=== PATIENT | female | born 1935 | race Caucasian/White ===

== ENCOUNTER 2017-10-02 14:35 | Inpatient (IN) ==
[2017-10-02 17:31] LABS: Basophils # 0.1 10*3/uL (0.0-0.2); Basophils % 0.4 % (0.0-0.8); Eosinophils % 0.1 % (0.00-10.9); Hematocrit 33.8 VOL% (35.7-47.0); Hemoglobin 11.1 GM/DL (12.0-16.0); Immature Granulocytes % 0.9 %; Immature Granulocytes Absolute 0.11 #; Lymphocytes # 0.6 10*3/uL (1.4-4.0); Lymphocytes % 4.8 % (21.3-54.2); Mean Corpuscular HGB Conc 32.8 GM/DL (32-36); Mean Corpuscular Hemoglobin 34 PG (27-34); Mean Corpuscular Volume 102.1 FL (87-102); Mean Platelet Volume 11.3 FL (9.6-12.0); Monocytes # 1.5 10*3/uL (0.11-0.8); Monocytes % 11.5 % (1.7-12.7); Neutrophils # 10.4 10*3/uL (1.4-7.4); Neutrophils % 82.3 % (38.7-73.9); Platelet Count 219 T/CUMM (130-400); Red Blood Count 3.31 MC/CUMM (3.8-5.5); Red Cell Distribution Width 13.4 % (9.3-17.3); White Blood Count 12.7 T/CUMM (4-12)
[2017-10-02 17:32] LABS: Apearance,Urine Slightly Hazy (Clear); Bacteria,Urine Occasional /HPF (Few); Bilirubin,Urine Negative (Negative); Blood, Urine Negative (Negative); Glucose,Urine (UA) Negative (Negative); Hyaline Casts,Urine 4 /LPF (0-3); Ketones,Urine Negative (Negative); Mucus,Urine Occasional /LPF (Occasional); Nitrite,Urine Negative (Negative); Protein,Urine Negative; RBC,Urine 1 /HPF (0-4); Urine Color Yellow (Yellow); Urine Specific Gravity 1.012 (1.001-1.035); Urine Urobilinogen < 2.0 EU/DL (0.2-1.0); WBC,Urine <1 /HPF (0-6)
[2017-10-02 18:19] LABS: Albumin 3.8 G/DL (3.4-5.0); Bilirubin,Total 1.1 MG/DL (0.2-1.0); Calcium 9.3 MG/DL (8.5-10.1); Osmolality,Calculated 290.1 MOS/KG (273-304); Potassium 3.8 MMOL/L (3.5-5.1)
[2017-10-02] MEDS ORDERED: SODIUM CHLORIDE 0.9% 500 ML IV STA (18:20)
[2017-10-02 18:22] LABS: Band Neutrophils 1 % (0-10); Lymphocytes 5 % (20-55); Platelet Estimate Normal; Segmented Neutrophils 78 % (50-85); Total Cells Counted 100
[2017-10-02] MEDS ORDERED: cefTRIAXone 1,000 MG in SODIUM CHLORIDE 0.9% 100 ML IV STA (19:27)
[2017-10-02 19:34] LABS: INR 4.9
[2017-10-02 19:35] LABS: PT Patient Result 48.6 SECS; Partial Thromboplastin Time 48.1 SECS (0-40)
[2017-10-02 19:39] LABS: CKMB % 0.6 %; Troponin I Only < 0.015 NG/ML (0.00-0.045)
[2017-10-02] MEDS ORDERED: cefTRIAXone 1,000 MG VIAL ONE (20:07)
[2017-10-02] MEDS ORDERED: BUMETANIDE 1 MG/4 ML VIAL IV ONE (21:25)
[2017-10-02] MEDS ORDERED: AZITHROMYCIN INJ 500 MG in SODIUM CHLORIDE 0.9% 250 ML IV SCH (21:30)
[2017-10-02] MEDS ORDERED: DIGOXIN 0.5 MG/2 ML AMP IV ONE (21:34)
[2017-10-02] MEDS ORDERED: CARVEDILOL 3.125 MG TABLET ONE (22:04)
[2017-10-02] MEDS: CARVEDILOL 3.125 MG TABLET PO SCH (22:05)
[2017-10-03] MEDS: PIPERACILLIN/TAZOBACTAM 3,375 MG in SODIUM CHLORIDE 0.9% 100 ML IV SCH ×3 (01:08→17:37)
[2017-10-03] MEDS ORDERED: LEVALBUTEROL 0.63 MG/3 ML NEB RESP TX PRN (01:44)
[2017-10-03] MEDS: GENTAMICIN 0.3% OPH SOLN 5 ML BOTTLE BOTH EYES SCH ×6 (03:04→22:27)
[2017-10-03 05:54] LABS: Basophils % 0.3 % (0.0-0.8); Eosinophils % 0.1 % (0.00-10.9); Hematocrit 31.3 VOL% (35.7-47.0); Hemoglobin 10.2 GM/DL (12.0-16.0); Immature Granulocytes % 0.7 %; Immature Granulocytes Absolute 0.08 #; Lymphocytes # 0.8 10*3/uL (1.4-4.0); Lymphocytes % 6.8 % (21.3-54.2); Mean Corpuscular HGB Conc 32.6 GM/DL (32-36); Mean Corpuscular Hemoglobin 33 PG (27-34); Mean Corpuscular Volume 102.3 FL (87-102); Mean Platelet Volume 11.6 FL (9.6-12.0); Monocytes # 1.3 10*3/uL (0.11-0.8); Monocytes % 11.2 % (1.7-12.7); Neutrophils # 9.1 10*3/uL (1.4-7.4); Neutrophils % 80.9 % (38.7-73.9); Platelet Count 199 T/CUMM (130-400); Red Blood Count 3.06 MC/CUMM (3.8-5.5); Red Cell Distribution Width 13.5 % (9.3-17.3); White Blood Count 11.3 T/CUMM (4-12)
[2017-10-03] MEDS: LEVOTHYROXINE 100 MCG TABLET PO SCH (06:05)
[2017-10-03 06:20] LABS: INR 6.7
[2017-10-03 06:30] LABS: Calcium 8.1 MG/DL (8.5-10.1); Osmolality,Calculated 291.8 MOS/KG (273-304); Potassium 3.6 MMOL/L (3.5-5.1)
[2017-10-03 07:33] LABS: Band Neutrophils 2 % (0-10); Lymphocytes 6 % (20-55); Platelet Estimate Adequate; Segmented Neutrophils 79 % (50-85); Total Cells Counted 100
[2017-10-03 07:34] LABS: Giant Platelets Few; Hypochromasia 1+; Ovalocytes Slight
[2017-10-03] MEDS ORDERED: levETIRAcetam 250 MG TABLET PO SCH (09:00)
[2017-10-03] MEDS: MAGNESIUM CHLORIDE 64 MG TABLET PO SCH ×2 (09:00→20:47)
[2017-10-03] MEDS ORDERED: ASPIRIN CHEW 81 MG TABLET PO SCH (09:00)
[2017-10-03] MEDS ORDERED: BUMETANIDE 1 MG/4 ML VIAL IV SCH (09:00)
[2017-10-03] MEDS: FAMOTIDINE 20 MG TABLET PO SCH (09:03)
[2017-10-03] MEDS: FERROUS SULFATE 325 MG TABLET PO SCH (09:03)
[2017-10-03] MEDS: CARVEDILOL 3.125 MG TABLET PO SCH ×2 (09:03→20:47)
[2017-10-03] MEDS: DIGOXIN 0.125 MG TABLET PO SCH (14:08)
[2017-10-03] MEDS ORDERED: SKIN HEALING OINT (AQUAPHOR) 50 GM TUBE TOP PRN (15:19)
[2017-10-03] MEDS ORDERED: WARFARIN 5 MG TABLET PO SCH (18:00)
[2017-10-03] MEDS: levETIRAcetam 250 MG TABLET PO SCH (20:47)
[2017-10-04] MEDS: PIPERACILLIN/TAZOBACTAM 3,375 MG in SODIUM CHLORIDE 0.9% 100 ML IV SCH ×3 (02:16→18:17)
[2017-10-04] MEDS: GENTAMICIN 0.3% OPH SOLN 5 ML BOTTLE BOTH EYES SCH ×6 (02:17→22:07)
[2017-10-04 05:27] LABS: Basophils # 0.1 10*3/uL (0.0-0.2); Basophils % 0.4 % (0.0-0.8); Eosinophils # 0.1 10*3/uL (0.0-0.87); Eosinophils % 0.7 % (0.00-10.9); Hematocrit 32.5 VOL% (35.7-47.0); Hemoglobin 10.5 GM/DL (12.0-16.0); Immature Granulocytes % 1.1 %; Immature Granulocytes Absolute 0.14 #; Lymphocytes # 0.7 10*3/uL (1.4-4.0); Mean Corpuscular HGB Conc 32.3 GM/DL (32-36); Mean Corpuscular Hemoglobin 33 PG (27-34); Mean Corpuscular Volume 101.9 FL (87-102); Mean Platelet Volume 10.8 FL (9.6-12.0); Monocytes # 1.2 10*3/uL (0.11-0.8); Neutrophils # 10.2 10*3/uL (1.4-7.4); Neutrophils % 81.8 % (38.7-73.9); Platelet Count 205 T/CUMM (130-400); Red Blood Count 3.19 MC/CUMM (3.8-5.5); Red Cell Distribution Width 13.2 % (9.3-17.3); White Blood Count 12.4 T/CUMM (4-12)
[2017-10-04 06:09] LABS: Calcium 8.2 MG/DL (8.5-10.1); Osmolality,Calculated 291.7 MOS/KG (273-304); Potassium 2.8 MMOL/L (3.5-5.1)
[2017-10-04] MEDS ORDERED: POTASSIUM CHLORIDE 20 MEQ TABLET PO PRN (06:14)
[2017-10-04] MEDS: LEVOTHYROXINE 100 MCG TABLET PO SCH (06:19)
[2017-10-04] MEDS ORDERED: POTASSIUM CHLORIDE 20 MEQ TABLET PO ONE ×2 (06:23→08:30)
[2017-10-04 06:37] LABS: Band Neutrophils 15 % (0-10); Eosinophils 2 % (0-10); Hypochromasia 1+; Lymphocytes 4 % (20-55); Platelet Estimate Adequate; Segmented Neutrophils 71 % (50-85); Total Cells Counted 100
[2017-10-04 07:07] LABS: PT Patient Result 83.4 SECS
[2017-10-04 07:09] LABS: INR 8.5
[2017-10-04 08:27] LABS: PT Patient Result 79.3 SECS
[2017-10-04 08:29] LABS: INR 8.1
[2017-10-04] MEDS ORDERED: PHYTONADIONE 5 MG TABLET PO ONE (08:50)
[2017-10-04] MEDS: levETIRAcetam 250 MG TABLET PO SCH ×2 (09:30→20:34)
[2017-10-04] MEDS: FERROUS SULFATE 325 MG TABLET PO SCH (09:30)
[2017-10-04] MEDS: MAGNESIUM CHLORIDE 64 MG TABLET PO SCH ×2 (09:30→20:33)
[2017-10-04] MEDS: POTASSIUM CHLORIDE 20 MEQ TABLET PO SCH ×3 (09:30→18:16)
[2017-10-04] MEDS: FAMOTIDINE 20 MG TABLET PO SCH (09:30)
[2017-10-04] MEDS: ASPIRIN CHEW 81 MG TABLET PO SCH (09:31)
[2017-10-04] MEDS: metOLazone 2.5 MG TABLET PO SCH (09:31)
[2017-10-04] MEDS: CARVEDILOL 3.125 MG TABLET PO SCH ×2 (09:31→20:33)
[2017-10-04] MEDS ORDERED: [UNRECOGNIZED DRUG - OTHER] PO ONE (09:45)
[2017-10-04] MEDS ORDERED: PHYTONADIONE PO ONE (09:45)
[2017-10-04] MEDS ORDERED: metOLazone 2.5 MG TABLET PO SCH (10:44)
[2017-10-04] MEDS: DIGOXIN 0.125 MG TABLET PO SCH (12:17)
[2017-10-04] MEDS ORDERED: ACETAMINOPHEN 325 MG TABLET PO PRN ×2 (18:28)
[2017-10-04] MEDS: ALBUTEROL 1.25 MG/3 ML NEB RESP TX PRN (18:40)
[2017-10-05] MEDS: PIPERACILLIN/TAZOBACTAM 3,375 MG in SODIUM CHLORIDE 0.9% 100 ML IV SCH ×3 (02:34→19:13)
[2017-10-05] MEDS: GENTAMICIN 0.3% OPH SOLN 5 ML BOTTLE BOTH EYES SCH ×6 (02:34→21:28)
[2017-10-05 05:21] LABS: Basophils # 0.1 10*3/uL (0.0-0.2); Basophils % 0.4 % (0.0-0.8); Eosinophils # 0.2 10*3/uL (0.0-0.87); Eosinophils % 1.1 % (0.00-10.9); Hematocrit 32.9 VOL% (35.7-47.0); Hemoglobin 10.5 GM/DL (12.0-16.0); Immature Granulocytes % 1.7 %; Immature Granulocytes Absolute 0.24 #; Lymphocytes # 1.1 10*3/uL (1.4-4.0); Lymphocytes % 7.5 % (21.3-54.2); Mean Corpuscular HGB Conc 31.9 GM/DL (32-36); Mean Corpuscular Hemoglobin 33 PG (27-34); Mean Corpuscular Volume 103.1 FL (87-102); Monocytes # 1.4 10*3/uL (0.11-0.8); Monocytes % 9.9 % (1.7-12.7); Neutrophils # 11.2 10*3/uL (1.4-7.4); Neutrophils % 79.4 % (38.7-73.9); Platelet Count 233 T/CUMM (130-400); Red Blood Count 3.19 MC/CUMM (3.8-5.5); Red Cell Distribution Width 13.2 % (9.3-17.3); White Blood Count 14.1 T/CUMM (4-12)
[2017-10-05 05:39] LABS: INR 1.5; PT Patient Result 15.9 SECS
[2017-10-05 05:50] LABS: Calcium 8.5 MG/DL (8.5-10.1); Magnesium 2.4 MG/DL (1.8-2.4); Osmolality,Calculated 286.8 MOS/KG (273-304); Potassium 4.9 MMOL/L (3.5-5.1)
[2017-10-05] MEDS: LEVOTHYROXINE 100 MCG TABLET PO SCH (06:30)
[2017-10-05] MEDS: ALBUTEROL 1.25 MG/3 ML NEB RESP TX PRN (09:14)
[2017-10-05] MEDS: ASPIRIN CHEW 81 MG TABLET PO SCH (09:57)
[2017-10-05] MEDS: levETIRAcetam 250 MG TABLET PO SCH ×2 (09:57→21:28)
[2017-10-05] MEDS: MAGNESIUM CHLORIDE 64 MG TABLET PO SCH ×2 (09:57→21:28)
[2017-10-05] MEDS: FERROUS SULFATE 325 MG TABLET PO SCH (09:57)
[2017-10-05] MEDS: CARVEDILOL 3.125 MG TABLET PO SCH ×2 (09:58→21:28)
[2017-10-05] MEDS: FAMOTIDINE 20 MG TABLET PO SCH (09:58)
[2017-10-05] MEDS ORDERED: ALBUTEROL/IPRATROPIUM 3 ML NEB RESP TX PRN (11:13)
[2017-10-05] MEDS: ALBUTEROL/IPRATROPIUM 3 ML NEB RESP TX SCH ×3 (13:24→21:00)
[2017-10-05] MEDS: DIGOXIN 0.125 MG TABLET PO SCH (15:38)
[2017-10-05] MEDS ORDERED: WARFARIN 5 MG TABLET ONE (18:47)
[2017-10-05] MEDS: WARFARIN 2.5 MG TABLET PO SCH (18:57)
[2017-10-06] MEDS: ALBUTEROL/IPRATROPIUM 3 ML NEB RESP TX SCH ×6 (00:12→21:44)
[2017-10-06] MEDS: PIPERACILLIN/TAZOBACTAM 3,375 MG in SODIUM CHLORIDE 0.9% 100 ML IV SCH ×3 (02:38→18:03)
[2017-10-06] MEDS: GENTAMICIN 0.3% OPH SOLN 5 ML BOTTLE BOTH EYES SCH ×6 (02:39→21:26)
[2017-10-06 06:01] LABS: Basophils # 0.1 10*3/uL (0.0-0.2); Basophils % 0.4 % (0.0-0.8); Eosinophils # 0.3 10*3/uL (0.0-0.87); Eosinophils % 2.6 % (0.00-10.9); Hematocrit 29.7 VOL% (35.7-47.0); INR 1.6; Immature Granulocytes % 4.1 %; Immature Granulocytes Absolute 0.49 #; Lymphocytes % 8.2 % (21.3-54.2); Mean Corpuscular HGB Conc 33.7 GM/DL (32-36); Mean Corpuscular Hemoglobin 34 PG (27-34); Mean Corpuscular Volume 100.3 FL (87-102); Mean Platelet Volume 10.8 FL (9.6-12.0); Monocytes # 1.2 10*3/uL (0.11-0.8); Monocytes % 10.3 % (1.7-12.7); Neutrophils # 8.8 10*3/uL (1.4-7.4); Neutrophils % 74.4 % (38.7-73.9); Platelet Count 256 T/CUMM (130-400); Red Blood Count 2.96 MC/CUMM (3.8-5.5); Red Cell Distribution Width 13.2 % (9.3-17.3); White Blood Count 11.9 T/CUMM (4-12)
[2017-10-06 06:23] LABS: Magnesium 2.2 MG/DL (1.8-2.4); Osmolality,Calculated 281.8 MOS/KG (273-304); Potassium 4.3 MMOL/L (3.5-5.1)
[2017-10-06] MEDS: LEVOTHYROXINE 100 MCG TABLET PO SCH (07:19)
[2017-10-06] MEDS: CARVEDILOL 3.125 MG TABLET PO SCH ×2 (09:25→21:26)
[2017-10-06] MEDS: levETIRAcetam 250 MG TABLET PO SCH ×2 (09:25→21:27)
[2017-10-06] MEDS: ASPIRIN CHEW 81 MG TABLET PO SCH (09:25)
[2017-10-06] MEDS: FAMOTIDINE 20 MG TABLET PO SCH (09:25)
[2017-10-06] MEDS: MAGNESIUM CHLORIDE 64 MG TABLET PO SCH ×2 (09:25→21:26)
[2017-10-06] MEDS: FERROUS SULFATE 325 MG TABLET PO SCH (09:25)
[2017-10-06] MEDS: DIGOXIN 0.125 MG TABLET PO SCH (14:11)
[2017-10-06] MEDS ORDERED: ONDANSETRON 4 MG/2 ML VIAL IV PRN (14:13)
[2017-10-06] MEDS ORDERED: WARFARIN 5 MG TABLET ONE (17:32)
[2017-10-06] MEDS: WARFARIN 2.5 MG TABLET PO SCH (18:02)
[2017-10-07] MEDS: ALBUTEROL/IPRATROPIUM 3 ML NEB RESP TX SCH ×5 (01:11→14:20)
[2017-10-07] MEDS: PIPERACILLIN/TAZOBACTAM 3,375 MG in SODIUM CHLORIDE 0.9% 100 ML IV SCH ×2 (02:12→10:15)
[2017-10-07] MEDS: GENTAMICIN 0.3% OPH SOLN 5 ML BOTTLE BOTH EYES SCH ×4 (02:13→13:31)
[2017-10-07 05:08] LABS: Basophils # 0.1 10*3/uL (0.0-0.2); Basophils % 0.6 % (0.0-0.8); Eosinophils # 0.5 10*3/uL (0.0-0.87); Eosinophils % 4.8 % (0.00-10.9); Hematocrit 29.2 VOL% (35.7-47.0); Hemoglobin 9.4 GM/DL (12.0-16.0); Immature Granulocytes Absolute 0.64 #; Lymphocytes # 0.9 10*3/uL (1.4-4.0); Lymphocytes % 8.3 % (21.3-54.2); Mean Corpuscular HGB Conc 32.2 GM/DL (32-36); Mean Corpuscular Hemoglobin 33 PG (27-34); Mean Corpuscular Volume 103.2 FL (87-102); Mean Platelet Volume 10.1 FL (9.6-12.0); Monocytes # 1.1 10*3/uL (0.11-0.8); Monocytes % 10.2 % (1.7-12.7); Neutrophils # 7.5 10*3/uL (1.4-7.4); Neutrophils % 70.1 % (38.7-73.9); Platelet Count 249 T/CUMM (130-400); Red Blood Count 2.83 MC/CUMM (3.8-5.5); Red Cell Distribution Width 13.2 % (9.3-17.3); White Blood Count 10.7 T/CUMM (4-12)
[2017-10-07 05:18] LABS: INR 1.6; PT Patient Result 16.3 SECS
[2017-10-07 05:42] LABS: Eosinophils 10 % (0-10); Hypochromasia 1+; Lymphocytes 8 % (20-55); Segmented Neutrophils 75 % (50-85); Total Cells Counted 100
[2017-10-07 05:43] LABS: Ovalocytes Slight; Platelet Estimate Normal
[2017-10-07 05:51] LABS: Calcium 7.7 MG/DL (8.5-10.1); Magnesium 2.3 MG/DL (1.8-2.4); Potassium 4.2 MMOL/L (3.5-5.1)
[2017-10-07] MEDS: LEVOTHYROXINE 100 MCG TABLET PO SCH (06:07)
[2017-10-07] MEDS ORDERED: CYANOCOBALAMIN 500 MCG TABLET PO SCH (09:00)
[2017-10-07] MEDS ORDERED: GLUCOSAMINE 500 MG TABLET PO SCH (09:00)
[2017-10-07] MEDS ORDERED: PANTOPRAZOLE 40 MG TABLET PO SCH (09:00)
[2017-10-07] MEDS: FERROUS SULFATE 325 MG TABLET PO SCH (09:13)
[2017-10-07] MEDS: CARVEDILOL 3.125 MG TABLET PO SCH (09:14)
[2017-10-07] MEDS: metOLazone 2.5 MG TABLET PO SCH (09:14)
[2017-10-07] MEDS: FAMOTIDINE 20 MG TABLET PO SCH (09:14)
[2017-10-07] MEDS: ASPIRIN CHEW 81 MG TABLET PO SCH (09:14)
[2017-10-07] MEDS: MAGNESIUM CHLORIDE 64 MG TABLET PO SCH (09:14)
[2017-10-07] MEDS: levETIRAcetam 250 MG TABLET PO SCH (09:15)
[2017-10-07] MEDS: DIGOXIN 0.125 MG TABLET PO SCH (13:31)
[2017-10-07 17:58] VITALS: BP 112/53
== END 2017-10-07 16:46 | disposition swing bed (61) | DRG 202 ==
LOC: N.ED 14:35 → SUATTDRO 20:31 → N.EDINP 20:31 → N.TELEN 21:10
PROVIDERS: ADMIT Internal Medicine Cardiovascular Disease; ATTEND Internal Medicine

== ENCOUNTER 2018-01-02 11:20 | Inpatient (IN) ==
[2018-01-02] MEDS ORDERED: DILTIAZEM 50 MG/10 ML VIAL IV STA (11:44)
[2018-01-02 12:10] LABS: Basophils # 0.1 10*3/uL (0.0-0.2); Basophils % 0.4 % (0.0-0.8); Eosinophils # 0.1 10*3/uL (0.0-0.87); Eosinophils % 0.8 % (0.00-10.9); Hematocrit 33.3 VOL% (35.7-47.0); Hemoglobin 10.8 GM/DL (12.0-16.0); Immature Granulocytes % 0.8 %; Immature Granulocytes Absolute 0.09 #; Lymphocytes # 0.7 10*3/uL (1.4-4.0); Mean Corpuscular HGB Conc 32.4 GM/DL (32-36); Mean Corpuscular Hemoglobin 34 PG (27-34); Mean Corpuscular Volume 103.4 FL (87-102); Mean Platelet Volume 10.3 FL (9.6-12.0); Monocytes % 9.1 % (1.7-12.7); Neutrophils # 9.3 10*3/uL (1.4-7.4); Neutrophils % 82.9 % (38.7-73.9); Platelet Count 221 T/CUMM (130-400); Red Blood Count 3.22 MC/CUMM (3.8-5.5); Red Cell Distribution Width 14.2 % (9.3-17.3); White Blood Count 11.2 T/CUMM (4-12)
[2018-01-02] MEDS ORDERED: DILTIAZEM 50 MG/10 ML VIAL IV ONE (12:14)
[2018-01-02 12:25] LABS: INR 1.8; PT Patient Result 18.7 SECS; Partial Thromboplastin Time 33.1 SECS (0-40)
[2018-01-02] MEDS ORDERED: LEVOFLOXACIN INJ 500 MG in PREMIX 1 EACH IV STA (12:36)
[2018-01-02 12:45] LABS: Alanine Aminotransferase 18 U/L (13-56); Alkaline Phosphatase 83 U/L (45-117); Aspartate Amino Transferase 38 U/L (0-37); Blood Urea Nitrogen 29 MG/DL (7-18); Calcium 9.2 MG/DL (8.5-10.1); Glucose 118 MG/DL (74-106); Osmolality,Calculated 276.1 MOS/KG (273-304); Potassium 4.5 MMOL/L (3.5-5.1); Sodium 135 MMOL/L (136-145); Total Protein 8.9 G/DL (6.4-8.3); Troponin I Only < 0.015 NG/ML (0.00-0.045)
[2018-01-02] MEDS ORDERED: LEVOFLOXACIN INJ 100 ML IV ONE (12:58)
[2018-01-02 13:00] LABS: Apearance,Urine CLOUDY (Clear); Bacteria,Urine Moderate /HPF (Few); Bilirubin,Urine Negative (Negative); Blood, Urine Small mg/dL (Negative); Glucose,Urine (UA) Negative (Negative); Ketones,Urine Negative (Negative); Mucus,Urine Occasional /LPF (Occasional); Nitrite,Urine Negative (Negative); Protein,Urine 30 MG/DL; RBC,Urine 7 /HPF (0-4); Squamous Epithelial Cell,Urine Occasional /HPF (0-10); Urine Color Yellow (Yellow); Urine Specific Gravity 1.013 (1.001-1.035); Urine Urobilinogen < 2.0 EU/DL (0.2-1.0); WBC,Urine 445 /HPF (0-6)
[2018-01-02 13:07] LABS: Barbiturates Screen,Urine Negative (Negative); Benzodiazepines Screen,Urine Negative (Negative); Cannabinoid Screen,Urine Negative (Negative); Opiate Screen,Urine Negative (Negative); Phencyclidine Screen,Urine Negative (Negative)
[2018-01-02] MEDS: DILTIAZEM INJ 100 MG in SODIUM CHLORIDE 0.9% 100 ML IV SCH ×2 (14:00→17:25)
[2018-01-02] MEDS ORDERED: PIPERACILLIN/TAZOBACTAM 3,375 MG in SODIUM CHLORIDE 0.9% 100 ML IV STA (14:32)
[2018-01-02] MEDS ORDERED: SODIUM CHLORIDE 0.9% 100 ML IV ONE (14:34)
[2018-01-02] MEDS ORDERED: PIPERACILLIN/TAZOBACTAM 3,375 MG VIAL IV ONE (14:34)
[2018-01-02] MEDS ORDERED: ONDANSETRON 4 MG/2 ML VIAL IV PRN (16:20)
[2018-01-02] MEDS ORDERED: ACETAMINOPHEN 325 MG TABLET PO PRN (16:20)
[2018-01-02] MEDS: SODIUM CHLORIDE 0.9% 1,000 ML IV SCH (17:30)
[2018-01-02] MEDS: ALBUTEROL/IPRATROPIUM 3 ML NEB RESP TX PRN (17:37)
[2018-01-02] MEDS: BENZONATATE 100 MG CAPSULE PO SCH ×2 (18:25→21:16)
[2018-01-02] MEDS: CARVEDILOL CR 10 MG CAPSULE PO SCH (18:25)
[2018-01-02] MEDS: methylPREDNISolone SOD SUC 40 MG/1 ML VIAL IM SCH (18:25)
[2018-01-02] MEDS ORDERED: HEPARIN DRIP 25,000 UNITS/500 ML PREMIX IV SCH (19:00)
[2018-01-02] MEDS ORDERED: BENZONATATE 100 MG CAPSULE PO SCH (21:00)
[2018-01-02] MEDS: MAGNESIUM CHLORIDE 64 MG TABLET PO SCH (21:16)
[2018-01-02] MEDS: levETIRAcetam 250 MG TABLET PO SCH (21:16)
[2018-01-02] MEDS: DOCUSATE SODIUM 100 MG CAPSULE PO SCH (21:16)
[2018-01-03 04:33] LABS: Basophils % 0.1 % (0.0-0.8); Hematocrit 28.5 VOL% (35.7-47.0); Hemoglobin 9.5 GM/DL (12.0-16.0); Immature Granulocytes % 0.8 %; Immature Granulocytes Absolute 0.08 #; Lymphocytes # 0.4 10*3/uL (1.4-4.0); Lymphocytes % 4.1 % (21.3-54.2); Mean Corpuscular HGB Conc 33.3 GM/DL (32-36); Mean Corpuscular Hemoglobin 34 PG (27-34); Mean Corpuscular Volume 100.7 FL (87-102); Mean Platelet Volume 10.9 FL (9.6-12.0); Monocytes # 0.3 10*3/uL (0.11-0.8); Monocytes % 2.6 % (1.7-12.7); Neutrophils # 8.9 10*3/uL (1.4-7.4); Neutrophils % 92.4 % (38.7-73.9); Platelet Count 166 T/CUMM (130-400); Red Blood Count 2.83 MC/CUMM (3.8-5.5); White Blood Count 9.7 T/CUMM (4-12)
[2018-01-03 04:44] LABS: INR 2.3
[2018-01-03 04:46] LABS: PT Patient Result 23.2 SECS
[2018-01-03 05:03] LABS: Calcium 8.2 MG/DL (8.5-10.1); Potassium 4.2 MMOL/L (3.5-5.1)
[2018-01-03 05:09] LABS: Band Neutrophils 1 % (0-10); Hypochromasia 1+; Lymphocytes 3 % (20-55); Ovalocytes Slight; Platelet Estimate Normal; Segmented Neutrophils 94 % (50-85); Total Cells Counted 100
[2018-01-03] MEDS: methylPREDNISolone SOD SUC 40 MG/1 ML VIAL IM SCH ×2 (05:45→18:11)
[2018-01-03] MEDS: LEVOTHYROXINE 125 MCG TABLET PO SCH (09:36)
[2018-01-03] MEDS: CARVEDILOL CR 10 MG CAPSULE PO SCH (09:36)
[2018-01-03] MEDS: BENZONATATE 100 MG CAPSULE PO SCH ×3 (09:36→21:05)
[2018-01-03] MEDS: LISINOPRIL 20 MG TABLET PO SCH (09:37)
[2018-01-03] MEDS: CYANOCOBALAMIN 500 MCG TABLET PO SCH (09:37)
[2018-01-03] MEDS: POTASSIUM CHLORIDE 10 MEQ TABLET PO SCH (09:37)
[2018-01-03] MEDS: PANTOPRAZOLE 40 MG TABLET PO SCH (09:37)
[2018-01-03] MEDS: FUROSEMIDE 40 MG TABLET PO SCH (09:37)
[2018-01-03] MEDS: DOCUSATE SODIUM 100 MG CAPSULE PO SCH ×2 (09:37→21:05)
[2018-01-03] MEDS: ASPIRIN CHEW 81 MG TABLET PO SCH (09:37)
[2018-01-03] MEDS: WARFARIN 5 MG TABLET PO SCH (09:40)
[2018-01-03] MEDS: levETIRAcetam 250 MG TABLET PO SCH ×2 (09:40→21:05)
[2018-01-03] MEDS: MAGNESIUM CHLORIDE 64 MG TABLET PO SCH ×2 (09:40→21:05)
[2018-01-03] MEDS: PIPERACILLIN/TAZOBACTAM 3,375 MG in SODIUM CHLORIDE 0.9% 100 ML IV SCH ×2 (12:00→18:11)
[2018-01-03] MEDS: SODIUM CHLORIDE 0.9% 1,000 ML IV SCH (21:04)
[2018-01-04] MEDS: PIPERACILLIN/TAZOBACTAM 3,375 MG in SODIUM CHLORIDE 0.9% 100 ML IV SCH ×3 (02:06→18:00)
[2018-01-04 04:47] LABS: Basophils % 0.1 % (0.0-0.8); Hemoglobin 9.2 GM/DL (12.0-16.0); Immature Granulocytes % 0.9 %; Immature Granulocytes Absolute 0.07 #; Lymphocytes # 0.4 10*3/uL (1.4-4.0); Lymphocytes % 4.5 % (21.3-54.2); Mean Corpuscular HGB Conc 34.1 GM/DL (32-36); Mean Corpuscular Hemoglobin 35 PG (27-34); Mean Corpuscular Volume 101.9 FL (87-102); Mean Platelet Volume 11.3 FL (9.6-12.0); Monocytes # 0.3 10*3/uL (0.11-0.8); Monocytes % 3.5 % (1.7-12.7); Neutrophils # 7.3 10*3/uL (1.4-7.4); Platelet Count 171 T/CUMM (130-400); Red Blood Count 2.65 MC/CUMM (3.8-5.5); Red Cell Distribution Width 13.7 % (9.3-17.3)
[2018-01-04 05:00] LABS: INR 2.7
[2018-01-04] MEDS: methylPREDNISolone SOD SUC 40 MG/1 ML VIAL IM SCH ×2 (05:01→16:50)
[2018-01-04 05:03] LABS: PT Patient Result 27.9 SECS
[2018-01-04 05:21] LABS: Calcium 8.1 MG/DL (8.5-10.1); Osmolality,Calculated 287.2 MOS/KG (273-304); Potassium 4.2 MMOL/L (3.5-5.1)
[2018-01-04 05:31] LABS: Band Neutrophils 2 % (0-10); Lymphocytes 3 % (20-55); Segmented Neutrophils 93 % (50-85); Total Cells Counted 100
[2018-01-04 05:32] LABS: Macrocytosis Slight; Platelet Estimate Adequate
[2018-01-04] MEDS: POTASSIUM CHLORIDE 10 MEQ TABLET PO SCH (09:01)
[2018-01-04] MEDS: BENZONATATE 100 MG CAPSULE PO SCH ×3 (09:01→20:21)
[2018-01-04] MEDS: LEVOTHYROXINE 125 MCG TABLET PO SCH (09:01)
[2018-01-04] MEDS: WARFARIN 5 MG TABLET PO SCH (09:01)
[2018-01-04] MEDS: FUROSEMIDE 40 MG TABLET PO SCH (09:01)
[2018-01-04] MEDS: CYANOCOBALAMIN 500 MCG TABLET PO SCH (09:01)
[2018-01-04] MEDS: levETIRAcetam 250 MG TABLET PO SCH ×2 (09:01→20:21)
[2018-01-04] MEDS: LISINOPRIL 20 MG TABLET PO SCH (09:01)
[2018-01-04] MEDS: MAGNESIUM CHLORIDE 64 MG TABLET PO SCH ×2 (09:01→20:21)
[2018-01-04] MEDS: ASPIRIN CHEW 81 MG TABLET PO SCH (09:01)
[2018-01-04] MEDS: PANTOPRAZOLE 40 MG TABLET PO SCH (09:01)
[2018-01-04] MEDS: CARVEDILOL CR 10 MG CAPSULE PO SCH (09:01)
[2018-01-04] MEDS: DOCUSATE SODIUM 100 MG CAPSULE PO SCH ×2 (09:01→20:21)
[2018-01-04] MEDS: ALBUTEROL/IPRATROPIUM 3 ML NEB RESP TX PRN (09:10)
[2018-01-04] MEDS: ALBUTEROL/IPRATROPIUM 3 ML NEB RESP TX SCH ×2 (13:00→20:29)
[2018-01-04] MEDS: SODIUM CHLORIDE 0.9% 1,000 ML IV SCH (20:21)
[2018-01-05] MEDS: ALBUTEROL/IPRATROPIUM 3 ML NEB RESP TX SCH ×4 (01:52→19:05)
[2018-01-05] MEDS: PIPERACILLIN/TAZOBACTAM 3,375 MG in SODIUM CHLORIDE 0.9% 100 ML IV SCH ×3 (03:00→18:08)
[2018-01-05 03:38] LABS: Basophils % 0.1 % (0.0-0.8); Hematocrit 27.8 VOL% (35.7-47.0); Hemoglobin 9.1 GM/DL (12.0-16.0); Immature Granulocytes % 0.8 %; Immature Granulocytes Absolute 0.06 #; Lymphocytes # 0.3 10*3/uL (1.4-4.0); Lymphocytes % 4.5 % (21.3-54.2); Mean Corpuscular HGB Conc 32.7 GM/DL (32-36); Mean Corpuscular Hemoglobin 34 PG (27-34); Mean Corpuscular Volume 104.1 FL (87-102); Mean Platelet Volume 10.4 FL (9.6-12.0); Monocytes # 0.4 10*3/uL (0.11-0.8); Monocytes % 5.7 % (1.7-12.7); Neutrophils # 6.7 10*3/uL (1.4-7.4); Neutrophils % 88.9 % (38.7-73.9); Platelet Count 182 T/CUMM (130-400); Red Blood Count 2.67 MC/CUMM (3.8-5.5); Red Cell Distribution Width 13.7 % (9.3-17.3); White Blood Count 7.6 T/CUMM (4-12)
[2018-01-05 03:51] LABS: INR 3.7
[2018-01-05 04:06] LABS: Calcium 7.9 MG/DL (8.5-10.1); Potassium 3.8 MMOL/L (3.5-5.1)
[2018-01-05 05:24] LABS: Band Neutrophils 2 % (0-10); Lymphocytes 5 % (20-55); Segmented Neutrophils 89 % (50-85); Total Cells Counted 100
[2018-01-05 05:25] LABS: Anisocytosis Slight; Macrocytosis 3+; Platelet Estimate Normal
[2018-01-05] MEDS: methylPREDNISolone SOD SUC 40 MG/1 ML VIAL IM SCH ×2 (05:49→17:42)
[2018-01-05] MEDS: CYANOCOBALAMIN 500 MCG TABLET PO SCH (08:22)
[2018-01-05] MEDS: LEVOTHYROXINE 125 MCG TABLET PO SCH (08:22)
[2018-01-05] MEDS: ASPIRIN CHEW 81 MG TABLET PO SCH (08:22)
[2018-01-05] MEDS: BENZONATATE 100 MG CAPSULE PO SCH ×3 (08:22→20:37)
[2018-01-05] MEDS: MAGNESIUM CHLORIDE 64 MG TABLET PO SCH ×2 (08:23→20:36)
[2018-01-05] MEDS: LISINOPRIL 20 MG TABLET PO SCH (08:23)
[2018-01-05] MEDS: FUROSEMIDE 40 MG TABLET PO SCH (08:23)
[2018-01-05] MEDS: WARFARIN 5 MG TABLET PO SCH (08:23)
[2018-01-05] MEDS: PANTOPRAZOLE 40 MG TABLET PO SCH (08:23)
[2018-01-05] MEDS: CARVEDILOL CR 10 MG CAPSULE PO SCH (08:23)
[2018-01-05] MEDS: DOCUSATE SODIUM 100 MG CAPSULE PO SCH ×2 (08:23→20:37)
[2018-01-05] MEDS: POTASSIUM CHLORIDE 10 MEQ TABLET PO SCH (08:23)
[2018-01-05] MEDS: levETIRAcetam 250 MG TABLET PO SCH ×2 (08:23→20:37)
[2018-01-05] MEDS ORDERED: metOLazone 2.5 MG TABLET PO SCH (09:00)
[2018-01-05] MEDS: SODIUM CHLORIDE 0.9% 1,000 ML IV SCH (17:42)
[2018-01-06] MEDS: ALBUTEROL/IPRATROPIUM 3 ML NEB RESP TX SCH ×3 (00:19→13:10)
[2018-01-06] MEDS: PIPERACILLIN/TAZOBACTAM 3,375 MG in SODIUM CHLORIDE 0.9% 100 ML IV SCH ×2 (01:57→10:08)
[2018-01-06 04:38] LABS: Basophils % 0.1 % (0.0-0.8); Eosinophils % 0.1 % (0.00-10.9); Hematocrit 28.7 VOL% (35.7-47.0); Hemoglobin 9.9 GM/DL (12.0-16.0); Immature Granulocytes Absolute 0.08 #; Lymphocytes # 0.9 10*3/uL (1.4-4.0); Mean Corpuscular HGB Conc 34.5 GM/DL (32-36); Mean Corpuscular Hemoglobin 35 PG (27-34); Mean Corpuscular Volume 101.8 FL (87-102); Mean Platelet Volume 10.6 FL (9.6-12.0); Monocytes # 0.9 10*3/uL (0.11-0.8); Neutrophils # 6.5 10*3/uL (1.4-7.4); Neutrophils % 76.8 % (38.7-73.9); Platelet Count 229 T/CUMM (130-400); Red Blood Count 2.82 MC/CUMM (3.8-5.5); Red Cell Distribution Width 13.6 % (9.3-17.3); White Blood Count 8.4 T/CUMM (4-12)
[2018-01-06 04:51] LABS: Calcium 8.2 MG/DL (8.5-10.1); Potassium 3.8 MMOL/L (3.5-5.1)
[2018-01-06 05:17] LABS: PT Patient Result 30.4 SECS
[2018-01-06] MEDS: methylPREDNISolone SOD SUC 40 MG/1 ML VIAL IM SCH (05:39)
[2018-01-06] MEDS: ASPIRIN CHEW 81 MG TABLET PO SCH (09:17)
[2018-01-06] MEDS: DOCUSATE SODIUM 100 MG CAPSULE PO SCH (09:17)
[2018-01-06] MEDS: CYANOCOBALAMIN 500 MCG TABLET PO SCH (09:17)
[2018-01-06] MEDS: levETIRAcetam 250 MG TABLET PO SCH (09:17)
[2018-01-06] MEDS: FUROSEMIDE 40 MG TABLET PO SCH (09:17)
[2018-01-06] MEDS: LEVOTHYROXINE 125 MCG TABLET PO SCH (09:18)
[2018-01-06] MEDS: BENZONATATE 100 MG CAPSULE PO SCH ×2 (09:18→15:06)
[2018-01-06] MEDS: PANTOPRAZOLE 40 MG TABLET PO SCH (09:18)
[2018-01-06] MEDS: POTASSIUM CHLORIDE 10 MEQ TABLET PO SCH (09:18)
[2018-01-06] MEDS: CARVEDILOL CR 10 MG CAPSULE PO SCH (09:18)
[2018-01-06] MEDS: LISINOPRIL 20 MG TABLET PO SCH (09:18)
[2018-01-06] MEDS: MAGNESIUM CHLORIDE 64 MG TABLET PO SCH (09:18)
[2018-01-06 13:00] VITALS: BP 139/99
== END 2018-01-06 16:35 | disposition home health service (06) | DRG 308 ==
LOC: N.ED 11:20 → N.EDINP 13:00 → N.TELES 15:54
PROVIDERS: ADMIT Family Medicine; ATTEND Family Medicine

== ENCOUNTER 2018-03-11 14:14 | Inpatient (IN) ==
[2018-03-11] MEDS ORDERED: ACETAMINOPHEN 325 MG TABLET PO ONE (15:35)
[2018-03-11 15:55] LABS: Basophils % 0.3 % (0.0-0.8); Eosinophils % 0.1 % (0.00-10.9); Immature Granulocytes % 0.5 %; Immature Granulocytes Absolute 0.04 #; Lymphocytes # 0.6 10*3/uL (1.4-4.0); Lymphocytes % 7.2 % (21.3-54.2); Mean Corpuscular HGB Conc 34.4 GM/DL (32-36); Mean Corpuscular Hemoglobin 35 PG (27-34); Mean Corpuscular Volume 101.9 FL (87-102); Mean Platelet Volume 10.8 FL (9.6-12.0); Monocytes % 11.6 % (1.7-12.7); Neutrophils # 6.9 10*3/uL (1.4-7.4); Neutrophils % 80.3 % (38.7-73.9); Platelet Count 167 T/CUMM (130-400); Red Blood Count 3.14 MC/CUMM (3.8-5.5); Red Cell Distribution Width 13.4 % (9.3-17.3); White Blood Count 8.6 T/CUMM (4-12)
[2018-03-11 16:02] LABS: INR 2.6
[2018-03-11 16:03] LABS: Apearance,Urine CLEAR (Clear); Bilirubin,Urine Negative (Negative); Blood, Urine Small mg/dL (Negative); Glucose,Urine (UA) Negative (Negative); Hyaline Casts,Urine 4 /LPF (0-3); Ketones,Urine Negative (Negative); Mucus,Urine Occasional /LPF (Occasional); Nitrite,Urine Negative (Negative); PT Patient Result 26.1 SECS; Protein,Urine Negative; RBC,Urine 1 /HPF (0-4); Squamous Epithelial Cell,Urine Occasional /HPF (0-10); Urine Color Yellow (Yellow); Urine Specific Gravity 1.006 (1.001-1.035); Urine Urobilinogen < 2.0 EU/DL (0.2-1.0); WBC,Urine <1 /HPF (0-6)
[2018-03-11 16:16] LABS: Albumin 3.8 G/DL (3.4-5.0); Bilirubin,Total 1.4 MG/DL (0.2-1.0); Calcium 8.7 MG/DL (8.5-10.1); Osmolality,Calculated 270.5 MOS/KG (273-304); Potassium 3.7 MMOL/L (3.5-5.1); Total Protein 8.5 G/DL (6.4-8.3)
[2018-03-11] MEDS ORDERED: ACETAMINOPHEN 325 MG TABLET ONE (16:24)
[2018-03-11] MEDS ORDERED: cefTRIAXone 1,000 MG VIAL ONE (16:52)
[2018-03-11] MEDS ORDERED: PIPERACILLIN/TAZOBACTAM 3,375 MG VIAL IV ONE (16:52)
[2018-03-11] MEDS ORDERED: ONDANSETRON 4 MG/2 ML VIAL IV PRN (18:41)
[2018-03-11] MEDS ORDERED: ACETAMINOPHEN 325 MG TABLET PO PRN (18:41)
[2018-03-11 20:22] LABS: INR 2.7
[2018-03-11 20:44] LABS: PT Patient Result 27.7 SECS; Partial Thromboplastin Time 44.1 SECS (0-40)
[2018-03-11] MEDS: SODIUM CHLORIDE 0.9% 1,000 ML IV SCH (20:53)
[2018-03-11] MEDS: DOCUSATE SODIUM 100 MG CAPSULE PO SCH (20:53)
[2018-03-11] MEDS ORDERED: SODIUM CHLORIDE 0.9% 250 ML IV ONE (22:15)
[2018-03-11] MEDS: levETIRAcetam 250 MG TABLET PO SCH (23:45)
[2018-03-12] MEDS: PIPERACILLIN/TAZOBACTAM 3,375 MG in SODIUM CHLORIDE 0.9% 100 ML IV SCH ×3 (01:40→17:18)
[2018-03-12] MEDS: SODIUM CHLORIDE 0.9% 1,000 ML IV SCH (03:56)
[2018-03-12 04:22] LABS: Basophils % 0.6 % (0.0-0.8); Eosinophils # 0.1 10*3/uL (0.0-0.87); Eosinophils % 1.8 % (0.00-10.9); Hematocrit 28.3 VOL% (35.7-47.0); Hemoglobin 9.4 GM/DL (12.0-16.0); Immature Granulocytes % 0.6 %; Immature Granulocytes Absolute 0.03 #; Lymphocytes # 0.7 10*3/uL (1.4-4.0); Lymphocytes % 13.4 % (21.3-54.2); Mean Corpuscular HGB Conc 33.2 GM/DL (32-36); Mean Corpuscular Hemoglobin 34 PG (27-34); Mean Corpuscular Volume 103.3 FL (87-102); Monocytes # 0.7 10*3/uL (0.11-0.8); Monocytes % 13.6 % (1.7-12.7); Neutrophils # 3.8 10*3/uL (1.4-7.4); Platelet Count 126 T/CUMM (130-400); Red Blood Count 2.74 MC/CUMM (3.8-5.5); Red Cell Distribution Width 13.4 % (9.3-17.3); White Blood Count 5.4 T/CUMM (4-12)
[2018-03-12 05:53] LABS: Calcium 7.9 MG/DL (8.5-10.1); Osmolality,Calculated 277.1 MOS/KG (273-304); Potassium 3.7 MMOL/L (3.5-5.1)
[2018-03-12 05:54] LABS: Albumin 2.8 G/DL (3.4-5.0); Bilirubin,Total 1.1 MG/DL (0.2-1.0); Calcium 7.9 MG/DL (8.5-10.1); Osmolality,Calculated 276.1 MOS/KG (273-304); Potassium 3.4 MMOL/L (3.5-5.1); Total Protein 6.6 G/DL (6.4-8.3)
[2018-03-12] MEDS: LEVOTHYROXINE 125 MCG TABLET PO SCH (06:08)
[2018-03-12] MEDS ORDERED: CARVEDILOL CR 10 MG CAPSULE PO SCH (09:00)
[2018-03-12] MEDS ORDERED: GLUCOSAMINE 500 MG TABLET PO SCH (09:00)
[2018-03-12] MEDS: POTASSIUM CHLORIDE 10 MEQ TABLET PO SCH (09:58)
[2018-03-12] MEDS: MAGNESIUM CHLORIDE 64 MG TABLET PO SCH ×2 (09:58→22:00)
[2018-03-12] MEDS: DOCUSATE SODIUM 100 MG CAPSULE PO SCH ×2 (09:58→22:00)
[2018-03-12] MEDS: metOLazone 2.5 MG TABLET PO SCH (09:58)
[2018-03-12] MEDS: CYANOCOBALAMIN 500 MCG TABLET PO SCH (09:58)
[2018-03-12] MEDS: FERROUS SULFATE 325 MG TABLET PO SCH (09:59)
[2018-03-12] MEDS: PANTOPRAZOLE 40 MG TABLET PO SCH (09:59)
[2018-03-12] MEDS: FUROSEMIDE 40 MG TABLET PO SCH (10:06)
[2018-03-12] MEDS: LISINOPRIL 20 MG TABLET PO SCH (10:07)
[2018-03-12] MEDS ORDERED: [UNRECOGNIZED DRUG - OTHER] PO SCH (10:30)
[2018-03-12] MEDS ORDERED: GLUCOSAMINE PO SCH (10:30)
[2018-03-12] MEDS: AZITHROMYCIN INJ 500 MG in SODIUM CHLORIDE 0.9% 250 ML IV SCH (15:03)
[2018-03-12] MEDS ORDERED: cefTRIAXone 1,000 MG in SYRINGE 1 EACH IV SCH (17:00)
[2018-03-12] MEDS: methylPREDNISolone SOD SUC 40 MG/1 ML VIAL IV SCH (17:18)
[2018-03-12] MEDS: WARFARIN 5 MG TABLET PO SCH (18:26)
[2018-03-12] MEDS: levETIRAcetam 250 MG TABLET PO SCH (22:00)
[2018-03-13] MEDS: methylPREDNISolone SOD SUC 40 MG/1 ML VIAL IV SCH ×3 (00:40→17:35)
[2018-03-13] MEDS: PIPERACILLIN/TAZOBACTAM 3,375 MG in SODIUM CHLORIDE 0.9% 100 ML IV SCH ×3 (02:00→17:35)
[2018-03-13] MEDS: SODIUM CHLORIDE 0.9% 1,000 ML IV SCH ×2 (02:47→22:00)
[2018-03-13 05:46] LABS: Basophils % 0.3 % (0.0-0.8); Hematocrit 28.1 VOL% (35.7-47.0); Hemoglobin 9.3 GM/DL (12.0-16.0); Immature Granulocytes % 0.6 %; Immature Granulocytes Absolute 0.02 #; Lymphocytes # 0.3 10*3/uL (1.4-4.0); Lymphocytes % 8.2 % (21.3-54.2); Mean Corpuscular HGB Conc 33.1 GM/DL (32-36); Mean Corpuscular Hemoglobin 33 PG (27-34); Mean Corpuscular Volume 100.7 FL (87-102); Mean Platelet Volume 11.1 FL (9.6-12.0); Monocytes # 0.1 10*3/uL (0.11-0.8); Monocytes % 3.3 % (1.7-12.7); Neutrophils # 2.9 10*3/uL (1.4-7.4); Neutrophils % 87.6 % (38.7-73.9); Platelet Count 144 T/CUMM (130-400); Red Blood Count 2.79 MC/CUMM (3.8-5.5); White Blood Count 3.3 T/CUMM (4-12)
[2018-03-13 06:15] LABS: Calcium 8.4 MG/DL (8.5-10.1); Osmolality,Calculated 278.1 MOS/KG (273-304)
[2018-03-13] MEDS: LEVOTHYROXINE 125 MCG TABLET PO SCH (06:45)
[2018-03-13] MEDS: DOCUSATE SODIUM 100 MG CAPSULE PO SCH ×2 (08:50→22:08)
[2018-03-13] MEDS: PANTOPRAZOLE 40 MG TABLET PO SCH (08:51)
[2018-03-13] MEDS: CYANOCOBALAMIN 500 MCG TABLET PO SCH (08:51)
[2018-03-13] MEDS: LISINOPRIL 20 MG TABLET PO SCH (08:51)
[2018-03-13] MEDS: FUROSEMIDE 40 MG TABLET PO SCH (08:51)
[2018-03-13] MEDS: MAGNESIUM CHLORIDE 64 MG TABLET PO SCH ×2 (08:51→20:45)
[2018-03-13] MEDS: FERROUS SULFATE 325 MG TABLET PO SCH (08:51)
[2018-03-13] MEDS: POTASSIUM CHLORIDE 10 MEQ TABLET PO SCH (08:53)
[2018-03-13] MEDS: AZITHROMYCIN INJ 500 MG in SODIUM CHLORIDE 0.9% 250 ML IV SCH (13:12)
[2018-03-13] MEDS: POTASSIUM CHLORIDE RIDER 10 MEQ in PREMIX 1 EACH IV SCH ×4 (17:35→22:00)
[2018-03-13] MEDS: WARFARIN 7.5 MG TABLET PO SCH (17:35)
[2018-03-13] MEDS: levETIRAcetam 250 MG TABLET PO SCH (20:45)
[2018-03-13] MEDS ORDERED: POTASSIUM CHLORIDE RIDER 10 MEQ in PREMIX 1 EACH IV SCH (22:00)
[2018-03-14] MEDS: methylPREDNISolone SOD SUC 40 MG/1 ML VIAL IV SCH ×3 (00:40→17:00)
[2018-03-14] MEDS: SODIUM CHLORIDE 0.9% 1,000 ML IV SCH ×3 (00:40→15:06)
[2018-03-14] MEDS: PIPERACILLIN/TAZOBACTAM 3,375 MG in SODIUM CHLORIDE 0.9% 100 ML IV SCH ×3 (00:45→19:24)
[2018-03-14 05:20] LABS: Hematocrit 28.5 VOL% (35.7-47.0); Hemoglobin 9.3 GM/DL (12.0-16.0); Immature Granulocytes % 0.9 %; Immature Granulocytes Absolute 0.04 #; Lymphocytes # 0.3 10*3/uL (1.4-4.0); Lymphocytes % 6.2 % (21.3-54.2); Mean Corpuscular HGB Conc 32.6 GM/DL (32-36); Mean Corpuscular Hemoglobin 33 PG (27-34); Mean Corpuscular Volume 101.1 FL (87-102); Mean Platelet Volume 11.2 FL (9.6-12.0); Monocytes # 0.2 10*3/uL (0.11-0.8); Monocytes % 3.3 % (1.7-12.7); Neutrophils % 89.6 % (38.7-73.9); Platelet Count 163 T/CUMM (130-400); Red Blood Count 2.82 MC/CUMM (3.8-5.5); Red Cell Distribution Width 12.9 % (9.3-17.3); White Blood Count 4.5 T/CUMM (4-12)
[2018-03-14 05:52] LABS: Calcium 8.5 MG/DL (8.5-10.1); Osmolality,Calculated 281.2 MOS/KG (273-304); Potassium 3.9 MMOL/L (3.5-5.1)
[2018-03-14] MEDS: LEVOTHYROXINE 125 MCG TABLET PO SCH (06:30)
[2018-03-14] MEDS: FERROUS SULFATE 325 MG TABLET PO SCH (11:00)
[2018-03-14] MEDS: DOCUSATE SODIUM 100 MG CAPSULE PO SCH ×2 (11:00→21:10)
[2018-03-14] MEDS: FUROSEMIDE 40 MG TABLET PO SCH (11:00)
[2018-03-14] MEDS: POTASSIUM CHLORIDE 10 MEQ TABLET PO SCH (11:00)
[2018-03-14] MEDS: metOLazone 2.5 MG TABLET PO SCH (11:01)
[2018-03-14] MEDS: LISINOPRIL 20 MG TABLET PO SCH (11:01)
[2018-03-14] MEDS: PANTOPRAZOLE 40 MG TABLET PO SCH (11:01)
[2018-03-14] MEDS: MAGNESIUM CHLORIDE 64 MG TABLET PO SCH ×2 (11:01→21:17)
[2018-03-14] MEDS: CYANOCOBALAMIN 500 MCG TABLET PO SCH (11:01)
[2018-03-14] MEDS: AZITHROMYCIN INJ 500 MG in SODIUM CHLORIDE 0.9% 250 ML IV SCH (15:04)
[2018-03-14] MEDS: ALBUTEROL/IPRATROPIUM 3 ML NEB RESP TX PRN (19:19)
[2018-03-14] MEDS: WARFARIN 5 MG TABLET PO SCH (19:22)
[2018-03-14] MEDS: levETIRAcetam 250 MG TABLET PO SCH (21:17)
[2018-03-15] MEDS: methylPREDNISolone SOD SUC 40 MG/1 ML VIAL IV SCH ×3 (00:24→16:27)
[2018-03-15] MEDS: SODIUM CHLORIDE 0.9% 1,000 ML IV SCH ×2 (00:24→16:39)
[2018-03-15] MEDS: PIPERACILLIN/TAZOBACTAM 3,375 MG in SODIUM CHLORIDE 0.9% 100 ML IV SCH ×2 (00:24→08:49)
[2018-03-15 05:16] LABS: Basophils % 0.2 % (0.0-0.8); Hematocrit 27.7 VOL% (35.7-47.0); Hemoglobin 9.5 GM/DL (12.0-16.0); Immature Granulocytes % 0.8 %; Immature Granulocytes Absolute 0.05 #; Lymphocytes # 0.3 10*3/uL (1.4-4.0); Lymphocytes % 4.8 % (21.3-54.2); Mean Corpuscular HGB Conc 34.3 GM/DL (32-36); Mean Corpuscular Hemoglobin 36 PG (27-34); Mean Corpuscular Volume 105.7 FL (87-102); Mean Platelet Volume 11.3 FL (9.6-12.0); Monocytes # 0.3 10*3/uL (0.11-0.8); Monocytes % 4.1 % (1.7-12.7); Neutrophils # 5.7 10*3/uL (1.4-7.4); Neutrophils % 90.1 % (38.7-73.9); Platelet Count 183 T/CUMM (130-400); Red Blood Count 2.62 MC/CUMM (3.8-5.5); Red Cell Distribution Width 13.2 % (9.3-17.3); White Blood Count 6.3 T/CUMM (4-12)
[2018-03-15 05:24] LABS: Calcium 8.4 MG/DL (8.5-10.1); Potassium 3.9 MMOL/L (3.5-5.1)
[2018-03-15] MEDS: LEVOTHYROXINE 125 MCG TABLET PO SCH (06:29)
[2018-03-15 06:50] LABS: Anisocytosis 1+; Band Neutrophils 3 % (0-10); Lymphocytes 3 % (20-55); Ovalocytes Few; Segmented Neutrophils 90 % (50-85); Total Cells Counted 100
[2018-03-15 06:51] LABS: Platelet Estimate Normal
[2018-03-15] MEDS: FUROSEMIDE 40 MG TABLET PO SCH (08:41)
[2018-03-15] MEDS: POTASSIUM CHLORIDE 10 MEQ TABLET PO SCH (08:41)
[2018-03-15] MEDS: MAGNESIUM CHLORIDE 64 MG TABLET PO SCH (08:41)
[2018-03-15] MEDS: LISINOPRIL 20 MG TABLET PO SCH (08:42)
[2018-03-15] MEDS: CYANOCOBALAMIN 500 MCG TABLET PO SCH (08:42)
[2018-03-15] MEDS: FERROUS SULFATE 325 MG TABLET PO SCH (08:42)
[2018-03-15] MEDS: DOCUSATE SODIUM 100 MG CAPSULE PO SCH ×2 (08:43→21:09)
[2018-03-15] MEDS: PANTOPRAZOLE 40 MG TABLET PO SCH (08:43)
[2018-03-15] MEDS ORDERED: cefTRIAXone 1,000 MG VIAL IV SCH ×2 (10:30→14:30)
[2018-03-15] MEDS ORDERED: cefTRIAXone 1,000 MG in SYRINGE 1 EACH IV SCH (11:30)
[2018-03-15] MEDS: AZITHROMYCIN INJ 500 MG in SODIUM CHLORIDE 0.9% 250 ML IV SCH (14:25)
[2018-03-15] MEDS: cefTRIAXone 1,000 MG in SYRINGE 1 EACH IV SCH (16:22)
[2018-03-15] MEDS: WARFARIN 5 MG TABLET PO SCH (17:33)
[2018-03-15] MEDS: levETIRAcetam 250 MG TABLET PO SCH (21:09)
[2018-03-16] MEDS: methylPREDNISolone SOD SUC 40 MG/1 ML VIAL IV SCH ×3 (00:44→15:41)
[2018-03-16 05:05] LABS: Basophils % 0.1 % (0.0-0.8); Hematocrit 31.2 VOL% (35.7-47.0); Immature Granulocytes % 1.5 %; Immature Granulocytes Absolute 0.11 #; Lymphocytes # 0.4 10*3/uL (1.4-4.0); Mean Corpuscular HGB Conc 32.1 GM/DL (32-36); Mean Corpuscular Hemoglobin 33 PG (27-34); Mean Platelet Volume 10.8 FL (9.6-12.0); Monocytes # 0.4 10*3/uL (0.11-0.8); Monocytes % 5.1 % (1.7-12.7); Neutrophils # 6.4 10*3/uL (1.4-7.4); Neutrophils % 88.3 % (38.7-73.9); Platelet Count 204 T/CUMM (130-400); Red Blood Count 3.06 MC/CUMM (3.8-5.5); Red Cell Distribution Width 13.1 % (9.3-17.3); White Blood Count 7.2 T/CUMM (4-12)
[2018-03-16] MEDS: SODIUM CHLORIDE 0.9% 1,000 ML IV SCH ×2 (05:18→16:26)
[2018-03-16 05:19] LABS: INR 3.9
[2018-03-16 05:30] LABS: PT Patient Result 39.4 SECS
[2018-03-16 05:42] LABS: Calcium 9.3 MG/DL (8.5-10.1); Osmolality,Calculated 293.8 MOS/KG (273-304); Potassium 3.8 MMOL/L (3.5-5.1)
[2018-03-16 05:54] LABS: Free T4 (Free Thyroxine) 1.1 NG/DL (0.76-1.46); Thyroid Stimulating Hormone 0.116 uIU/ml (0.358-3.74)
[2018-03-16 05:55] LABS: Folate 23.5 NG/ML (5.4-24.0); Vitamin B12 > 2000 PG/ML (211-911)
[2018-03-16] MEDS: LEVOTHYROXINE 125 MCG TABLET PO SCH (06:49)
[2018-03-16] MEDS: MAGNESIUM CHLORIDE 64 MG TABLET PO SCH (09:01)
[2018-03-16] MEDS: CYANOCOBALAMIN 500 MCG TABLET PO SCH (09:01)
[2018-03-16] MEDS: FUROSEMIDE 40 MG TABLET PO SCH (09:01)
[2018-03-16] MEDS: FERROUS SULFATE 325 MG TABLET PO SCH (09:02)
[2018-03-16] MEDS: POTASSIUM CHLORIDE 10 MEQ TABLET PO SCH (09:02)
[2018-03-16] MEDS: LISINOPRIL 20 MG TABLET PO SCH (09:02)
[2018-03-16] MEDS: DOCUSATE SODIUM 100 MG CAPSULE PO SCH ×2 (09:02→23:01)
[2018-03-16] MEDS: PANTOPRAZOLE 40 MG TABLET PO SCH (09:02)
[2018-03-16] MEDS: AZITHROMYCIN INJ 500 MG in SODIUM CHLORIDE 0.9% 250 ML IV SCH (13:16)
[2018-03-16] MEDS: cefTRIAXone 1,000 MG in SYRINGE 1 EACH IV SCH (15:30)
[2018-03-16] MEDS: levETIRAcetam 250 MG TABLET PO SCH (23:01)
[2018-03-17] MEDS: methylPREDNISolone SOD SUC 40 MG/1 ML VIAL IV SCH ×4 (00:33→21:03)
[2018-03-17 05:48] LABS: Hematocrit 30.8 VOL% (35.7-47.0); Hemoglobin 10.3 GM/DL (12.0-16.0); Immature Granulocytes % 2.4 %; Immature Granulocytes Absolute 0.15 #; Lymphocytes # 0.4 10*3/uL (1.4-4.0); Mean Corpuscular HGB Conc 33.4 GM/DL (32-36); Mean Corpuscular Hemoglobin 34 PG (27-34); Mean Corpuscular Volume 100.3 FL (87-102); Mean Platelet Volume 10.8 FL (9.6-12.0); Monocytes # 0.3 10*3/uL (0.11-0.8); Monocytes % 4.7 % (1.7-12.7); Neutrophils # 5.3 10*3/uL (1.4-7.4); Neutrophils % 85.9 % (38.7-73.9); Platelet Count 206 T/CUMM (130-400); Red Blood Count 3.07 MC/CUMM (3.8-5.5); Red Cell Distribution Width 13.2 % (9.3-17.3); White Blood Count 6.2 T/CUMM (4-12)
[2018-03-17 05:55] LABS: PT Patient Result 30.2 SECS
[2018-03-17] MEDS: LEVOTHYROXINE 125 MCG TABLET PO SCH (05:56)
[2018-03-17] MEDS: SODIUM CHLORIDE 0.9% 1,000 ML IV SCH (05:56)
[2018-03-17 06:02] LABS: Calcium 9.2 MG/DL (8.5-10.1); Osmolality,Calculated 292.7 MOS/KG (273-304); Potassium 4.7 MMOL/L (3.5-5.1)
[2018-03-17] MEDS: POTASSIUM CHLORIDE 10 MEQ TABLET PO SCH (09:25)
[2018-03-17] MEDS: DOCUSATE SODIUM 100 MG CAPSULE PO SCH ×2 (09:25→21:02)
[2018-03-17] MEDS: PANTOPRAZOLE 40 MG TABLET PO SCH (09:25)
[2018-03-17] MEDS: LISINOPRIL 20 MG TABLET PO SCH ×2 (09:25→14:47)
[2018-03-17] MEDS: metOLazone 2.5 MG TABLET PO SCH (09:25)
[2018-03-17] MEDS: FERROUS SULFATE 325 MG TABLET PO SCH (09:25)
[2018-03-17] MEDS: FUROSEMIDE 40 MG TABLET PO SCH (09:25)
[2018-03-17] MEDS: CYANOCOBALAMIN 500 MCG TABLET PO SCH (09:25)
[2018-03-17] MEDS: MAGNESIUM CHLORIDE 64 MG TABLET PO SCH (09:25)
[2018-03-17] MEDS ORDERED: LISINOPRIL 20 MG TABLET PO SCH (13:08)
[2018-03-17] MEDS: hydrALAZINE 20 MG/1 ML VIAL IV PRN (14:47)
[2018-03-17] MEDS: AZITHROMYCIN INJ 500 MG in SODIUM CHLORIDE 0.9% 250 ML IV SCH (14:47)
[2018-03-17] MEDS: cefTRIAXone 1,000 MG in SYRINGE 1 EACH IV SCH (17:29)
[2018-03-17] MEDS: WARFARIN 7.5 MG TABLET PO SCH (17:40)
[2018-03-17] MEDS: ALBUTEROL/IPRATROPIUM 3 ML NEB RESP TX PRN (20:22)
[2018-03-17] MEDS: levETIRAcetam 250 MG TABLET PO SCH (21:02)
[2018-03-18] MEDS: hydrALAZINE 20 MG/1 ML VIAL IV PRN (01:00)
[2018-03-18 05:50] LABS: Basophils % 0.2 % (0.0-0.8); Hematocrit 31.9 VOL% (35.7-47.0); Immature Granulocytes % 6.3 %; Immature Granulocytes Absolute 0.51 #; Lymphocytes # 0.5 10*3/uL (1.4-4.0); Lymphocytes % 6.6 % (21.3-54.2); Mean Corpuscular HGB Conc 34.5 GM/DL (32-36); Mean Corpuscular Hemoglobin 33 PG (27-34); Mean Corpuscular Volume 96.1 FL (87-102); Mean Platelet Volume 10.6 FL (9.6-12.0); Monocytes # 0.6 10*3/uL (0.11-0.8); Monocytes % 7.9 % (1.7-12.7); Neutrophils # 6.4 10*3/uL (1.4-7.4); Platelet Count 268 T/CUMM (130-400); Red Blood Count 3.32 MC/CUMM (3.8-5.5); Red Cell Distribution Width 13.4 % (9.3-17.3); White Blood Count 8.1 T/CUMM (4-12)
[2018-03-18 05:57] LABS: INR 1.9
[2018-03-18 06:16] LABS: Band Neutrophils 1 % (0-10); Lymphocytes 5 % (20-55); Platelet Estimate Normal; Segmented Neutrophils 90 % (50-85); Total Cells Counted 100
[2018-03-18 06:17] LABS: Macrocytosis 2+
[2018-03-18 06:23] LABS: Calcium 9.2 MG/DL (8.5-10.1); Osmolality,Calculated 285.1 MOS/KG (273-304); Potassium 4.2 MMOL/L (3.5-5.1)
[2018-03-18] MEDS: LEVOTHYROXINE 125 MCG TABLET PO SCH (07:05)
[2018-03-18] MEDS ORDERED: AZITHROMYCIN 250 MG TABLET PO SCH ×2 (09:00)
[2018-03-18] MEDS: methylPREDNISolone SOD SUC 40 MG/1 ML VIAL IV SCH ×2 (09:28→10:01)
[2018-03-18] MEDS: MAGNESIUM CHLORIDE 64 MG TABLET PO SCH (09:44)
[2018-03-18] MEDS: CYANOCOBALAMIN 500 MCG TABLET PO SCH (09:44)
[2018-03-18] MEDS: FUROSEMIDE 40 MG TABLET PO SCH ×2 (09:44→10:02)
[2018-03-18] MEDS: PANTOPRAZOLE 40 MG TABLET PO SCH (09:44)
[2018-03-18] MEDS: POTASSIUM CHLORIDE 10 MEQ TABLET PO SCH (09:45)
[2018-03-18] MEDS: FERROUS SULFATE 325 MG TABLET PO SCH (09:45)
[2018-03-18] MEDS: DOCUSATE SODIUM 100 MG CAPSULE PO SCH (09:45)
[2018-03-18] MEDS: WARFARIN 5 MG TABLET PO SCH (14:52)
[2018-03-18 16:10] VITALS: BP 140/86
[2018-03-18] MEDS: cefTRIAXone 1,000 MG in SYRINGE 1 EACH IV SCH (17:10)
== END 2018-03-18 17:11 | disposition home health service (06) | DRG 195 ==
LOC: N.ED 14:14 → N.EDINP 16:46 → N.TELES 17:41
PROVIDERS: ADMIT Family Medicine; ATTEND Family Medicine

== ENCOUNTER 2018-12-11 16:32 | Inpatient (IN) ==
[~2018-12-11 16:32] MED LIST: LEVOFLOXACIN INJ 500 MG in PREMIX 1 EACH IV ONE
[2018-12-11 18:03] LABS: Basophils % 1.3 % (0.0-0.8); Eosinophils # 0.1 10*3/uL (0.0-0.87); Eosinophils % 2.4 % (0.00-10.9); Hematocrit 30.7 VOL% (35.7-47.0); Hemoglobin 10.1 GM/DL (12.0-16.0); Lymphocytes # 0.4 10*3/uL (1.4-4.0); Lymphocytes % 13.8 % (21.3-54.2); Mean Corpuscular HGB Conc 32.9 GM/DL (32-36); Mean Corpuscular Hemoglobin 33 PG (27-34); Mean Corpuscular Volume 101.7 FL (87-102); Mean Platelet Volume 11.5 FL (9.6-12.0); Monocytes # 0.5 10*3/uL (0.11-0.8); Monocytes % 17.8 % (1.7-12.7); Neutrophils # 1.9 10*3/uL (1.4-7.4); Neutrophils % 64.7 % (38.7-73.9); Platelet Count 121 T/CUMM (130-400); Red Blood Count 3.02 MC/CUMM (3.8-5.5); Red Cell Distribution Width 14.1 % (9.3-17.3)
[2018-12-11 18:09] LABS: Apearance,Urine CLOUDY (Clear); Bilirubin,Urine Negative (Negative); Blood, Urine Moderate mg/dL (Negative); Glucose,Urine (UA) Negative (Negative); Ketones,Urine Negative (Negative); Nitrite,Urine Negative (Negative); Protein,Urine 30 MG/DL; RBC,Urine 46 /HPF (0-4); Urine Specific Gravity 1.014 (1.001-1.035); Urine Urobilinogen < 2.0 EU/DL (0.2-1.0); WBC,Urine 902 /HPF (0-6)
[2018-12-11 18:10] LABS: PT Patient Result 21.4 SECS; Urine Color Dark yellow (Yellow)
[2018-12-11] MEDS ORDERED: SODIUM CHLORIDE 0.9% 500 ML IV STA (18:21)
[2018-12-11] MEDS ORDERED: CIPROFLOXACIN INJ 400 MG in PREMIX 1 EACH IV STA (18:21)
[2018-12-11 18:24] LABS: Albumin 3.5 G/DL (3.4-5.0); Calcium 8.9 MG/DL (8.5-10.1); Osmolality,Calculated 271.2 MOS/KG (273-304); Total Protein 7.7 G/DL (6.4-8.3)
[2018-12-11 18:34] LABS: Band Neutrophils 1 % (0-10); Lymphocytes 17 % (20-55); Platelet Estimate Adequate; Segmented Neutrophils 70 % (50-85); Total Cells Counted 100
[2018-12-11 18:36] LABS: Hypochromasia Slight; Macrocytosis Slight
[2018-12-11] MEDS ORDERED: CIPROFLOXACIN 400 MG/200 ML PREMIX IV ONE (18:40)
[2018-12-11] MEDS ORDERED: ACETAMINOPHEN 325 MG TABLET PO PRN (20:39)
[2018-12-11] MEDS ORDERED: ONDANSETRON 4 MG/2 ML VIAL IV PRN (20:39)
[2018-12-11] MEDS ORDERED: FUROSEMIDE 40 MG/4 ML VIAL IV ONE (20:47)
[2018-12-11] MEDS ORDERED: ALBUTEROL 1.25 MG/3 ML NEB RESP TX PRN (20:51)
[2018-12-11] MEDS ORDERED: WARFARIN 7.5 MG TABLET PO ONE (22:00)
[2018-12-11] MEDS ORDERED: ENOXAPARIN 60 MG/0.6 ML SYRINGE SUBCUT ONE (22:00)
[2018-12-11] MEDS: levETIRAcetam 250 MG TABLET PO SCH (23:14)
[2018-12-12 05:35] LABS: Basophils # 0.1 10*3/uL (0.0-0.2); Basophils % 1.5 % (0.0-0.8); Eosinophils % 1.2 % (0.00-10.9); Hematocrit 30.4 VOL% (35.7-47.0); Hemoglobin 9.9 GM/DL (12.0-16.0); Immature Granulocytes % 0.3 %; Immature Granulocytes Absolute 0.01 #; Lymphocytes # 0.6 10*3/uL (1.4-4.0); Lymphocytes % 17.7 % (21.3-54.2); Mean Corpuscular HGB Conc 32.6 GM/DL (32-36); Mean Corpuscular Hemoglobin 33 PG (27-34); Mean Corpuscular Volume 101.7 FL (87-102); Mean Platelet Volume 11.5 FL (9.6-12.0); Monocytes # 0.6 10*3/uL (0.11-0.8); Monocytes % 19.2 % (1.7-12.7); Neutrophils % 60.1 % (38.7-73.9); Platelet Count 111 T/CUMM (130-400); Red Blood Count 2.99 MC/CUMM (3.8-5.5); Red Cell Distribution Width 14.4 % (9.3-17.3); White Blood Count 3.3 T/CUMM (4-12)
[2018-12-12 05:48] LABS: Calcium 8.5 MG/DL (8.5-10.1); Potassium 3.7 MMOL/L (3.5-5.1)
[2018-12-12 05:49] LABS: Eosinophils 2 % (0-10); Lymphocytes 18 % (20-55); Platelet Estimate Normal; Segmented Neutrophils 73 % (50-85); Total Cells Counted 100
[2018-12-12 05:50] LABS: Hypochromasia 1+; PT Patient Result 21.4 SECS; Partial Thromboplastin Time 43.3 SECS (0-40); Polychromasia Few
[2018-12-12 05:51] LABS: Albumin 3.5 G/DL (3.4-5.0); Bilirubin,Direct 0.35 MG/DL (0.0-0.20); Bilirubin,Indirect 0.8 MG/DL (0.0-1.0); Bilirubin,Total 1.1 MG/DL (0.2-1.0); Total Protein 7.1 G/DL (6.4-8.3)
[2018-12-12] MEDS ORDERED: LEVOFLOXACIN INJ 500 MG in PREMIX 1 EACH IV ONE (06:00)
[2018-12-12] MEDS: LEVOTHYROXINE 125 MCG TABLET PO SCH (09:36)
[2018-12-12] MEDS: FUROSEMIDE 40 MG TABLET PO SCH (09:36)
[2018-12-12] MEDS: PANTOPRAZOLE 40 MG TABLET PO SCH (09:36)
[2018-12-12] MEDS: LISINOPRIL 20 MG TABLET PO SCH (09:36)
[2018-12-12] MEDS: CARVEDILOL CR 10 MG CAPSULE PO SCH (16:10)
[2018-12-12] MEDS ORDERED: WARFARIN 5 MG TABLET PO SCH (18:00)
[2018-12-12] MEDS: levETIRAcetam 250 MG TABLET PO SCH (22:09)
[2018-12-13 05:58] LABS: INR 2.4
[2018-12-13] MEDS ORDERED: LEVOFLOXACIN INJ 250 MG in PREMIX 1 EACH IV SCH (06:00)
[2018-12-13 06:10] LABS: PT Patient Result 25.9 SECS
[2018-12-13] MEDS: LEVOTHYROXINE 125 MCG TABLET PO SCH (08:30)
[2018-12-13] MEDS: LISINOPRIL 20 MG TABLET PO SCH (08:30)
[2018-12-13] MEDS: PANTOPRAZOLE 40 MG TABLET PO SCH (08:30)
[2018-12-13] MEDS: FUROSEMIDE 40 MG TABLET PO SCH (08:30)
[2018-12-13] MEDS: CARVEDILOL CR 10 MG CAPSULE PO SCH ×2 (08:32→08:54)
[2018-12-13] MEDS ORDERED: WARFARIN 7.5 MG TABLET PO SCH (18:00)
[2018-12-13] MEDS: levETIRAcetam 250 MG TABLET PO SCH (20:35)
[2018-12-14 04:49] LABS: INR 2.9
[2018-12-14 05:03] LABS: PT Patient Result 30.7 SECS
[2018-12-14 07:34] LABS: Basophils % 0.7 % (0.0-0.8); Eosinophils # 0.2 10*3/uL (0.0-0.87); Eosinophils % 7.1 % (0.00-10.9); Hematocrit 29.9 VOL% (35.7-47.0); Hemoglobin 9.5 GM/DL (12.0-16.0); Immature Granulocytes % 0.3 %; Immature Granulocytes Absolute 0.01 #; Lymphocytes # 0.6 10*3/uL (1.4-4.0); Lymphocytes % 19.9 % (21.3-54.2); Mean Corpuscular HGB Conc 31.8 GM/DL (32-36); Mean Corpuscular Hemoglobin 33 PG (27-34); Mean Corpuscular Volume 103.8 FL (87-102); Mean Platelet Volume 11.9 FL (9.6-12.0); Monocytes # 0.5 10*3/uL (0.11-0.8); Monocytes % 15.9 % (1.7-12.7); Neutrophils # 1.7 10*3/uL (1.4-7.4); Neutrophils % 56.1 % (38.7-73.9); Platelet Count 111 T/CUMM (130-400); Red Blood Count 2.88 MC/CUMM (3.8-5.5); Red Cell Distribution Width 14.1 % (9.3-17.3)
[2018-12-14 07:43] LABS: Albumin 3.2 G/DL (3.4-5.0); Bilirubin,Total 0.5 MG/DL (0.2-1.0); Osmolality,Calculated 273.2 MOS/KG (273-304); Potassium 3.6 MMOL/L (3.5-5.1); Total Protein 6.9 G/DL (6.4-8.3)
[2018-12-14 08:06] LABS: Band Neutrophils 2 % (0-10); Eosinophils 7 % (0-10); Lymphocytes 24 % (20-55); Metamyelocytes 1 %; Segmented Neutrophils 55 % (50-85); Total Cells Counted 100
[2018-12-14 08:07] LABS: Macrocytosis Slight; Ovalocytes Slight
[2018-12-14 08:08] LABS: Platelet Estimate Adequate
[2018-12-14] MEDS: LISINOPRIL 20 MG TABLET PO SCH (08:33)
[2018-12-14] MEDS: PANTOPRAZOLE 40 MG TABLET PO SCH (08:33)
[2018-12-14] MEDS: FUROSEMIDE 40 MG TABLET PO SCH (08:33)
[2018-12-14] MEDS: LEVOTHYROXINE 125 MCG TABLET PO SCH (08:33)
[2018-12-14] MEDS: CARVEDILOL CR 10 MG CAPSULE PO SCH (08:34)
[2018-12-14] MEDS ORDERED: LEVOFLOXACIN 250 MG TABLET PO SCH (09:00)
[2018-12-14 12:18] VITALS: BP 104/55
== END 2018-12-14 14:21 | disposition home or self-care (01) | DRG 690 ==
LOC: N.ED 16:32 → N.EDINP 20:39 → SUATTDRO 20:39 → N.EDINP 21:13 → N.5E 21:16
PROVIDERS: ADMIT Internal Medicine; ATTEND Internal Medicine Cardiovascular Disease

== ENCOUNTER 2019-06-17 11:40 | Inpatient (IN) ==
[2019-06-17] MEDS ORDERED: FUROSEMIDE 100 MG/10 ML VIAL IV STA (12:14)
[2019-06-17 12:52] LABS: Basophils % 1.1 % (0.0-0.8); Eosinophils # 0.1 10*3/uL (0.0-0.87); Eosinophils % 2.8 % (0.00-10.9); Hematocrit 34.1 VOL% (35.7-47.0); Hemoglobin 11.3 GM/DL (12.0-16.0); Immature Granulocytes % 0.3 %; Immature Granulocytes Absolute 0.01 #; Lymphocytes # 0.6 10*3/uL (1.4-4.0); Lymphocytes % 15.6 % (21.3-54.2); Mean Corpuscular HGB Conc 33.1 GM/DL (32-36); Mean Corpuscular Volume 106.2 FL (87-102); Mean Platelet Volume 11.8 FL (9.6-12.0); Monocytes % 11.7 % (1.7-12.7); Neutrophils % 68.5 % (38.7-73.9); Platelet Count 120 T/CUMM (130-400); Red Blood Count 3.21 MC/CUMM (3.8-5.5); Red Cell Distribution Width 15.8 % (9.3-17.3); White Blood Count 3.6 T/CUMM (4-12)
[2019-06-17 14:27] LABS: Albumin 3.7 G/DL (3.4-5.0); Bilirubin,Total 0.9 MG/DL (0.2-1.0); Calcium 9.3 MG/DL (8.5-10.1); Osmolality,Calculated 273.1 MOS/KG (273-304); Total Protein 8.3 G/DL (6.4-8.3)
[2019-06-17 14:30] LABS: Apearance,Urine CLEAR (Clear); Bacteria,Urine Occasional /HPF (Few); Bilirubin,Urine Negative (Negative); Blood, Urine Small mg/dL (Negative); Glucose,Urine (UA) Negative (Negative); Hyaline Casts,Urine 4 /LPF (0-3); Ketones,Urine Negative (Negative); Mucus,Urine Occasional /LPF (Occasional); Nitrite,Urine Negative (Negative); Protein,Urine Negative; RBC,Urine 3 /HPF (0-4); Squamous Epithelial Cell,Urine Occasional /HPF (0-10); Urine Color Yellow (Yellow); Urine Specific Gravity 1.004 (1.001-1.035); Urine Urobilinogen < 2.0 EU/DL (0.2-1.0); WBC,Urine 31 /HPF (0-6)
[2019-06-17] MEDS ORDERED: LEVOFLOXACIN INJ 500 MG in PREMIX 1 EACH IV STA (15:19)
[2019-06-17] MEDS ORDERED: ONDANSETRON 4 MG/2 ML VIAL IV PRN (16:16)
[2019-06-17] MEDS ORDERED: MAGNESIUM SULF RIDER 2 GM in PREMIX 1 EACH IV PRN (16:16)
[2019-06-17] MEDS ORDERED: MAGNESIUM SULF RIDER 4 GM in PREMIX 1 EACH IV PRN (16:16)
[2019-06-17] MEDS ORDERED: ACETAMINOPHEN 325 MG TABLET PO PRN (16:16)
[2019-06-17 17:06] LABS: INR 3.2
[2019-06-17 17:09] LABS: PT Patient Result 34.1 SECS (9.6-12.2)
[2019-06-17] MEDS ORDERED: INFLUENZA VIRUS VACCINE 0.5 ML SYRINGE IM ONE (17:43)
[2019-06-17] MEDS: MAGNESIUM CHLORIDE 64 MG TABLET PO SCH (20:45)
[2019-06-17] MEDS: levETIRAcetam 250 MG TABLET PO SCH (20:46)
[2019-06-17] MEDS: GLUCOSAMINE 500 MG TABLET PO SCH (20:46)
[2019-06-17] MEDS: carvediloL 6.25 MG TABLET PO SCH (20:46)
[2019-06-18] MEDS: LEVOTHYROXINE 125 MCG TABLET PO SCH (06:23)
[2019-06-18 07:57] LABS: Basophils % 1.2 % (0.0-0.8); Eosinophils # 0.1 10*3/uL (0.0-0.87); Eosinophils % 3.2 % (0.00-10.9); Hematocrit 30.7 VOL% (35.7-47.0); Hemoglobin 10.2 GM/DL (12.0-16.0); Immature Granulocytes % 0.3 %; Immature Granulocytes Absolute 0.01 #; Lymphocytes # 0.5 10*3/uL (1.4-4.0); Lymphocytes % 15.2 % (21.3-54.2); Mean Corpuscular HGB Conc 33.2 GM/DL (32-36); Mean Corpuscular Volume 107.3 FL (87-102); Mean Platelet Volume 11.5 FL (9.6-12.0); Monocytes % 13.5 % (1.7-12.7); Neutrophils % 66.6 % (38.7-73.9); Platelet Count 114 T/CUMM (130-400); Red Blood Count 2.86 MC/CUMM (3.8-5.5); Red Cell Distribution Width 15.7 % (9.3-17.3); White Blood Count 3.4 T/CUMM (4-12)
[2019-06-18 08:02] LABS: INR 2.7
[2019-06-18 08:08] LABS: PT Patient Result 29.4 SECS (9.6-12.2)
[2019-06-18 08:28] LABS: Bilirubin,Total 1.1 MG/DL (0.2-1.0); Calcium 8.8 MG/DL (8.5-10.1); Osmolality,Calculated 271.1 MOS/KG (273-304); Total Protein 7.4 G/DL (6.4-8.3)
[2019-06-18] MEDS: lisinopriL 5 MG TABLET PO SCH (08:51)
[2019-06-18] MEDS: FERROUS SULFATE 325 MG TABLET PO SCH (08:51)
[2019-06-18] MEDS: POTASSIUM CHLORIDE 10 MEQ TABLET PO SCH (08:51)
[2019-06-18] MEDS: GLUCOSAMINE 500 MG TABLET PO SCH ×2 (08:51→23:17)
[2019-06-18] MEDS: MAGNESIUM CHLORIDE 64 MG TABLET PO SCH ×2 (08:51→23:17)
[2019-06-18] MEDS: FUROSEMIDE 40 MG/4 ML VIAL IV SCH ×2 (08:51→17:35)
[2019-06-18] MEDS: CYANOCOBALAMIN 500 MCG TABLET PO SCH (08:51)
[2019-06-18] MEDS: PANTOPRAZOLE 40 MG TABLET PO SCH (08:51)
[2019-06-18] MEDS: carvediloL 6.25 MG TABLET PO SCH ×2 (08:51→17:37)
[2019-06-18] MEDS: cefTRIAXone 1,000 MG in SYRINGE 1 EACH IV SCH (17:35)
[2019-06-18] MEDS ORDERED: WARFARIN 5 MG TABLET PO SCH (18:00)
[2019-06-18] MEDS ORDERED: TUBERCULIN SKIN TEST 0.1 ML SYRINGE INTRADERM ONE (18:56)
[2019-06-18] MEDS: WARFARIN 5 MG TABLET PO SCH (19:45)
[2019-06-18] MEDS: levETIRAcetam 250 MG TABLET PO SCH (23:17)
[2019-06-19 04:55] LABS: Basophils % 0.9 % (0.0-0.8); Eosinophils # 0.1 10*3/uL (0.0-0.87); Eosinophils % 3.4 % (0.00-10.9); Hematocrit 30.1 VOL% (35.7-47.0); Hemoglobin 9.9 GM/DL (12.0-16.0); Immature Granulocytes % 0.3 %; Immature Granulocytes Absolute 0.01 #; Lymphocytes # 0.6 10*3/uL (1.4-4.0); Lymphocytes % 19.6 % (21.3-54.2); Mean Corpuscular HGB Conc 32.9 GM/DL (32-36); Mean Corpuscular Volume 106.4 FL (87-102); Mean Platelet Volume 11.1 FL (9.6-12.0); Monocytes % 14.4 % (1.7-12.7); Neutrophils % 61.4 % (38.7-73.9); Platelet Count 115 T/CUMM (130-400); Red Blood Count 2.83 MC/CUMM (3.8-5.5); Red Cell Distribution Width 15.6 % (9.3-17.3); White Blood Count 3.3 T/CUMM (4-12)
[2019-06-19 05:19] LABS: Calcium 8.6 MG/DL (8.5-10.1); Osmolality,Calculated 280.8 MOS/KG (273-304)
[2019-06-19 07:20] LABS: Folate 11.3 NG/ML (5.4-24.0)
[2019-06-19] MEDS: FUROSEMIDE 40 MG/4 ML VIAL IV SCH (09:29)
[2019-06-19] MEDS: lisinopriL 5 MG TABLET PO SCH (09:29)
[2019-06-19] MEDS: MAGNESIUM CHLORIDE 64 MG TABLET PO SCH ×2 (09:29→21:08)
[2019-06-19] MEDS: carvediloL 6.25 MG TABLET PO SCH ×2 (09:30→16:32)
[2019-06-19] MEDS: POTASSIUM CHLORIDE 10 MEQ TABLET PO SCH (09:30)
[2019-06-19] MEDS: PANTOPRAZOLE 40 MG TABLET PO SCH (09:30)
[2019-06-19] MEDS: FERROUS SULFATE 325 MG TABLET PO SCH (09:30)
[2019-06-19] MEDS: LEVOTHYROXINE 125 MCG TABLET PO SCH (09:30)
[2019-06-19] MEDS: GLUCOSAMINE 500 MG TABLET PO SCH ×2 (09:30→21:08)
[2019-06-19] MEDS: CYANOCOBALAMIN 500 MCG TABLET PO SCH (11:54)
[2019-06-19] MEDS: cefTRIAXone 1,000 MG in SYRINGE 1 EACH IV SCH (16:32)
[2019-06-19] MEDS: WARFARIN 5 MG TABLET PO SCH (17:36)
[2019-06-19] MEDS ORDERED: WARFARIN 7.5 MG TABLET PO SCH (18:00)
[2019-06-19] MEDS: levETIRAcetam 250 MG TABLET PO SCH (21:08)
[2019-06-20] MEDS: LEVOTHYROXINE 125 MCG TABLET PO SCH (06:07)
[2019-06-20] MEDS: MAGNESIUM CHLORIDE 64 MG TABLET PO SCH ×2 (09:06→21:55)
[2019-06-20] MEDS: GLUCOSAMINE 500 MG TABLET PO SCH ×2 (09:06→21:55)
[2019-06-20] MEDS: lisinopriL 5 MG TABLET PO SCH (09:06)
[2019-06-20] MEDS: FERROUS SULFATE 325 MG TABLET PO SCH (09:06)
[2019-06-20] MEDS: CYANOCOBALAMIN 500 MCG TABLET PO SCH (09:06)
[2019-06-20] MEDS: POTASSIUM CHLORIDE 10 MEQ TABLET PO SCH (09:06)
[2019-06-20] MEDS: carvediloL 6.25 MG TABLET PO SCH ×2 (09:07→17:45)
[2019-06-20] MEDS: PANTOPRAZOLE 40 MG TABLET PO SCH (09:07)
[2019-06-20] MEDS: FUROSEMIDE 40 MG TABLET PO SCH (09:07)
[2019-06-20] MEDS: ALBUTEROL/IPRATROPIUM 3 ML NEB RESP TX SCH ×4 (11:16→23:35)
[2019-06-20] MEDS ORDERED: ALBUTEROL/IPRATROPIUM 3 ML NEB RESP TX PRN (14:41)
[2019-06-20] MEDS ORDERED: predniSONE 20 MG TABLET PO ONE (14:46)
[2019-06-20] MEDS: cefTRIAXone 1,000 MG in SYRINGE 1 EACH IV SCH (17:44)
[2019-06-20] MEDS ORDERED: WARFARIN 7.5 MG TABLET PO SCH (18:00)
[2019-06-20] MEDS: levETIRAcetam 250 MG TABLET PO SCH (21:55)
[2019-06-21] MEDS: ALBUTEROL/IPRATROPIUM 3 ML NEB RESP TX SCH ×5 (03:33→19:37)
[2019-06-21 05:16] LABS: Basophils % 0.3 % (0.0-0.8); Eosinophils % 0.3 % (0.00-10.9); Hematocrit 32.1 VOL% (35.7-47.0); Hemoglobin 10.7 GM/DL (12.0-16.0); Immature Granulocytes % 0.3 %; Immature Granulocytes Absolute 0.01 #; Lymphocytes # 0.3 10*3/uL (1.4-4.0); Mean Corpuscular HGB Conc 33.3 GM/DL (32-36); Mean Corpuscular Volume 107.7 FL (87-102); Mean Platelet Volume 11.2 FL (9.6-12.0); Monocytes % 5.2 % (1.7-12.7); Neutrophils % 83.9 % (38.7-73.9); Platelet Count 128 T/CUMM (130-400); Red Blood Count 2.98 MC/CUMM (3.8-5.5); Red Cell Distribution Width 15.5 % (9.3-17.3); White Blood Count 3.3 T/CUMM (4-12)
[2019-06-21 05:33] LABS: Calcium 9.1 MG/DL (8.5-10.1); Osmolality,Calculated 280.4 MOS/KG (273-304)
[2019-06-21 05:45] LABS: PT Patient Result 22.1 SECS (9.6-12.2)
[2019-06-21] MEDS: LEVOTHYROXINE 125 MCG TABLET PO SCH (06:11)
[2019-06-21] MEDS ORDERED: predniSONE 20 MG TABLET PO SCH ×2 (09:00→09:55)
[2019-06-21] MEDS: lisinopriL 5 MG TABLET PO SCH (09:46)
[2019-06-21] MEDS: GLUCOSAMINE 500 MG TABLET PO SCH ×2 (09:46→20:57)
[2019-06-21] MEDS: POTASSIUM CHLORIDE 10 MEQ TABLET PO SCH (09:47)
[2019-06-21] MEDS: FUROSEMIDE 40 MG TABLET PO SCH (09:47)
[2019-06-21] MEDS: FERROUS SULFATE 325 MG TABLET PO SCH (09:47)
[2019-06-21] MEDS: PANTOPRAZOLE 40 MG TABLET PO SCH (09:47)
[2019-06-21] MEDS: CYANOCOBALAMIN 500 MCG TABLET PO SCH (09:47)
[2019-06-21] MEDS: carvediloL 6.25 MG TABLET PO SCH ×2 (09:47→17:54)
[2019-06-21] MEDS: MAGNESIUM CHLORIDE 64 MG TABLET PO SCH ×2 (09:52→20:57)
[2019-06-21] MEDS ORDERED: ALUMINUM/MAGNES/SIMETH MAX STR 30 ML UDCUP PO PRN (13:13)
[2019-06-21] MEDS: WARFARIN 5 MG TABLET PO SCH (17:54)
[2019-06-21] MEDS: cefTRIAXone 1,000 MG in SYRINGE 1 EACH IV SCH (17:54)
[2019-06-21] MEDS: levETIRAcetam 250 MG TABLET PO SCH (20:57)
[2019-06-22] MEDS: ALBUTEROL/IPRATROPIUM 3 ML NEB RESP TX SCH ×4 (00:26→10:45)
[2019-06-22 04:54] LABS: Basophils % 0.2 % (0.0-0.8); Eosinophils % 0.7 % (0.00-10.9); Hemoglobin 9.9 GM/DL (12.0-16.0); Immature Granulocytes % 0.5 %; Immature Granulocytes Absolute 0.02 #; Lymphocytes # 0.4 10*3/uL (1.4-4.0); Lymphocytes % 9.5 % (21.3-54.2); Mean Corpuscular Volume 106.4 FL (87-102); Mean Platelet Volume 11.3 FL (9.6-12.0); Monocytes % 8.8 % (1.7-12.7); Neutrophils % 80.3 % (38.7-73.9); Platelet Count 126 T/CUMM (130-400); Red Blood Count 2.82 MC/CUMM (3.8-5.5); Red Cell Distribution Width 15.6 % (9.3-17.3); White Blood Count 4.2 T/CUMM (4-12)
[2019-06-22 05:14] LABS: Calcium 8.7 MG/DL (8.5-10.1); Osmolality,Calculated 273.5 MOS/KG (273-304)
[2019-06-22] MEDS: LEVOTHYROXINE 125 MCG TABLET PO SCH (06:04)
[2019-06-22] MEDS ORDERED: predniSONE 10 MG TABLET PO SCH (09:00)
[2019-06-22] MEDS: PANTOPRAZOLE 40 MG TABLET PO SCH (09:10)
[2019-06-22] MEDS: MAGNESIUM CHLORIDE 64 MG TABLET PO SCH (09:10)
[2019-06-22] MEDS: GLUCOSAMINE 500 MG TABLET PO SCH (09:11)
[2019-06-22] MEDS: FERROUS SULFATE 325 MG TABLET PO SCH (09:11)
[2019-06-22] MEDS: FUROSEMIDE 40 MG TABLET PO SCH (09:11)
[2019-06-22] MEDS: CYANOCOBALAMIN 500 MCG TABLET PO SCH (09:11)
[2019-06-22] MEDS: lisinopriL 5 MG TABLET PO SCH (09:11)
[2019-06-22] MEDS: POTASSIUM CHLORIDE 10 MEQ TABLET PO SCH (09:11)
[2019-06-22] MEDS: carvediloL 6.25 MG TABLET PO SCH (09:11)
[2019-06-22 12:15] VITALS: BP 144/79
[2019-06-22] MEDS ORDERED: LOPERAMIDE 2 MG CAPSULE PO ONE (14:10)
== END 2019-06-22 14:51 | disposition home or self-care (01) | DRG 292 ==
LOC: N.ED 11:40 → SUATTDRO 16:16 → N.EDINP 16:16 → N.TELES 16:50
PROVIDERS: ADMIT Internal Medicine; ATTEND Hospitalist

== ENCOUNTER 2020-06-12 19:08 | Inpatient (IN) ==
[2020-06-12 20:14] LABS: Basophils % 1.2 % (0.0-0.8); Eosinophils # 0.2 10*3/uL (0.0-0.87); Eosinophils % 7.1 % (0.00-10.9); Hematocrit 26.5 VOL% (35.7-47.0); Hemoglobin 8.9 GM/DL (12.0-16.0); Immature Granulocytes % 0.3 %; Immature Granulocytes Absolute 0.01 #; Lymphocytes # 0.4 10*3/uL (1.4-4.0); Mean Corpuscular HGB Conc 33.6 GM/DL (32-36); Mean Corpuscular Volume 103.9 FL (87-102); Mean Platelet Volume 12.4 FL (9.6-12.0); Monocytes % 14.1 % (1.7-12.7); Neutrophils % 65.3 % (38.7-73.9); Platelet Count 112 T/CUMM (130-400); Red Blood Count 2.55 MC/CUMM (3.8-5.5); Red Cell Distribution Width 15.3 % (9.3-17.3); White Blood Count 3.3 T/CUMM (4-12)
[2020-06-12 20:33] LABS: PT Patient Result 89.1 SECS (9.8-11.9)
[2020-06-12 20:35] LABS: Albumin 3.6 G/DL (3.4-5.0); Bilirubin,Total 0.5 MG/DL (0.2-1.0); Calcium 8.4 MG/DL (8.5-10.1); Osmolality,Calculated 287.8 MOS/KG (273-304); Total Protein 7.3 G/DL (6.4-8.3)
[2020-06-12 20:38] LABS: INR 9.4
[2020-06-12] MEDS ORDERED: ALBUTEROL 2.5 MG/3 ML NEB RESP TX STA (20:52)
[2020-06-12] MEDS ORDERED: FUROSEMIDE 100 MG/10 ML VIAL IV STA (20:55)
[2020-06-12] MEDS ORDERED: FUROSEMIDE 40 MG/4 ML VIAL ONE (21:08)
[2020-06-12 21:36] LABS: Apearance,Urine CLEAR (Clear); Bilirubin,Urine Negative (Negative); Blood, Urine Moderate mg/dL (Negative); Glucose,Urine (UA) Negative (Negative); Hyaline Casts,Urine 11 /LPF (0-3); Ketones,Urine Negative (Negative); Mucus,Urine Occasional /LPF (Occasional); Nitrite,Urine Negative (Negative); Protein,Urine Negative; RBC,Urine 3 /HPF (0-4); Squamous Epithelial Cell,Urine Occasional /HPF (0-10); Urine Color Yellow (Yellow); Urine Urobilinogen < 2.0 EU/DL (0.2-1.0); WBC,Urine 2 /HPF (0-6)
[2020-06-12] MEDS ORDERED: ONDANSETRON 4 MG/2 ML VIAL IV PRN (22:32)
[2020-06-12] MEDS ORDERED: ACETAMINOPHEN 325 MG TABLET PO PRN (22:32)
[2020-06-13 03:24] LABS: Basophils % 1.4 % (0.0-0.8); Eosinophils # 0.2 10*3/uL (0.0-0.87); Eosinophils % 6.8 % (0.00-10.9); Hemoglobin 8.9 GM/DL (12.0-16.0); Immature Granulocytes % 0.3 %; Immature Granulocytes Absolute 0.01 #; Lymphocytes # 0.5 10*3/uL (1.4-4.0); Lymphocytes % 16.3 % (21.3-54.2); Mean Corpuscular HGB Conc 34.2 GM/DL (32-36); Mean Corpuscular Volume 103.6 FL (87-102); Mean Platelet Volume 12.1 FL (9.6-12.0); Monocytes % 13.3 % (1.7-12.7); Neutrophils % 61.9 % (38.7-73.9); Platelet Count 107 T/CUMM (130-400); Red Blood Count 2.51 MC/CUMM (3.8-5.5); Red Cell Distribution Width 15.3 % (9.3-17.3); White Blood Count 2.9 T/CUMM (4-12)
[2020-06-13 03:54] LABS: Calcium 8.8 MG/DL (8.5-10.1); Osmolality,Calculated 288.7 MOS/KG (273-304); Thyroid Stimulating Hormone 3.19 uIU/ml (0.358-3.74)
[2020-06-13 03:57] LABS: PT Patient Result 78.3 SECS (9.8-11.9)
[2020-06-13 03:59] LABS: INR 8.2
[2020-06-13] MEDS: FUROSEMIDE 40 MG/4 ML VIAL IV SCH ×2 (08:29→16:34)
[2020-06-13] MEDS ORDERED: cefTRIAXone 1,000 MG in SYRINGE 1 EACH IV ONE (09:30)
[2020-06-13] MEDS ORDERED: [UNRECOGNIZED DRUG - OTHER] PO SCH (21:00)
[2020-06-13] MEDS: carvediloL 6.25 MG TABLET PO SCH (21:13)
[2020-06-13] MEDS: levETIRAcetam 500 MG TABLET PO SCH (21:13)
[2020-06-13] MEDS: MAGNESIUM CHLORIDE 64 MG TABLET PO SCH ×2 (21:13→21:27)
[2020-06-14 04:36] LABS: Basophils # 0.1 10*3/uL (0.0-0.2); Basophils % 1.5 % (0.0-0.8); Eosinophils # 0.2 10*3/uL (0.0-0.87); Eosinophils % 5.5 % (0.00-10.9); Hematocrit 26.1 VOL% (35.7-47.0); Hemoglobin 8.9 GM/DL (12.0-16.0); Immature Granulocytes % 0.3 %; Immature Granulocytes Absolute 0.01 #; Lymphocytes # 0.5 10*3/uL (1.4-4.0); Lymphocytes % 15.7 % (21.3-54.2); Mean Corpuscular HGB Conc 34.1 GM/DL (32-36); Mean Platelet Volume 11.8 FL (9.6-12.0); Monocytes % 15.1 % (1.7-12.7); Neutrophils % 61.9 % (38.7-73.9); Platelet Count 109 T/CUMM (130-400); Red Blood Count 2.51 MC/CUMM (3.8-5.5); Red Cell Distribution Width 15.2 % (9.3-17.3); White Blood Count 3.4 T/CUMM (4-12)
[2020-06-14 04:56] LABS: Albumin 3.3 G/DL (3.4-5.0); Bilirubin,Total 0.8 MG/DL (0.2-1.0); Calcium 8.5 MG/DL (8.5-10.1); Osmolality,Calculated 288.4 MOS/KG (273-304); Total Protein 6.9 G/DL (6.4-8.3)
[2020-06-14 05:00] LABS: PT Patient Result 49.1 SECS (9.8-11.9)
[2020-06-14] MEDS: CYANOCOBALAMIN 500 MCG TABLET PO SCH (09:30)
[2020-06-14] MEDS: MAGNESIUM CHLORIDE 64 MG TABLET PO SCH ×2 (09:30→21:03)
[2020-06-14] MEDS: carvediloL 6.25 MG TABLET PO SCH ×2 (09:31→21:02)
[2020-06-14] MEDS: LEVOTHYROXINE 125 MCG TABLET PO SCH (09:31)
[2020-06-14] MEDS: PANTOPRAZOLE 40 MG TABLET PO SCH (09:31)
[2020-06-14] MEDS: FERROUS SULFATE 325 MG TABLET PO SCH (09:31)
[2020-06-14] MEDS: FUROSEMIDE 40 MG/4 ML VIAL IV SCH (09:32)
[2020-06-14] MEDS: predniSONE 5 MG TABLET PO SCH (09:33)
[2020-06-14] MEDS: POTASSIUM CHLORIDE 10 MEQ TABLET PO SCH (09:34)
[2020-06-14] MEDS: ALBUTEROL/IPRATROPIUM 3 ML NEB RESP TX SCH ×2 (14:45→19:56)
[2020-06-14] MEDS: levETIRAcetam 500 MG TABLET PO SCH (21:02)
[2020-06-15] MEDS: ALBUTEROL/IPRATROPIUM 3 ML NEB RESP TX SCH ×4 (00:40→19:04)
[2020-06-15 05:15] LABS: Calcium 8.9 MG/DL (8.5-10.1)
[2020-06-15 05:17] LABS: INR 2.5; PT Patient Result 25.6 SECS (9.8-11.9)
[2020-06-15] MEDS ORDERED: predniSONE 10 MG TABLET ONE (08:42)
[2020-06-15] MEDS ORDERED: FUROSEMIDE 40 MG TABLET PO SCH (09:00)
[2020-06-15] MEDS: CYANOCOBALAMIN 500 MCG TABLET PO SCH (09:13)
[2020-06-15] MEDS: FUROSEMIDE 40 MG TABLET PO SCH (09:14)
[2020-06-15] MEDS: LEVOTHYROXINE 125 MCG TABLET PO SCH (09:14)
[2020-06-15] MEDS: predniSONE 5 MG TABLET PO SCH (09:14)
[2020-06-15] MEDS: carvediloL 6.25 MG TABLET PO SCH ×2 (09:14→21:44)
[2020-06-15] MEDS: POTASSIUM CHLORIDE 10 MEQ TABLET PO SCH (09:14)
[2020-06-15] MEDS: FERROUS SULFATE 325 MG TABLET PO SCH (09:14)
[2020-06-15] MEDS: PANTOPRAZOLE 40 MG TABLET PO SCH (09:14)
[2020-06-15] MEDS: MAGNESIUM CHLORIDE 64 MG TABLET PO SCH ×2 (09:18→21:45)
[2020-06-15] MEDS: cefTRIAXone 1,000 MG in SYRINGE 1 EACH IV SCH (16:16)
[2020-06-15] MEDS: WARFARIN 5 MG TABLET PO SCH (17:58)
[2020-06-15] MEDS: levETIRAcetam 500 MG TABLET PO SCH (21:45)
[2020-06-16] MEDS: ALBUTEROL/IPRATROPIUM 3 ML NEB RESP TX SCH ×4 (01:13→19:18)
[2020-06-16 04:40] LABS: Basophils # 0.1 10*3/uL (0.0-0.2); Basophils % 1.4 % (0.0-0.8); Eosinophils # 0.2 10*3/uL (0.0-0.87); Eosinophils % 5.4 % (0.00-10.9); Hematocrit 27.8 VOL% (35.7-47.0); Hemoglobin 9.2 GM/DL (12.0-16.0); Immature Granulocytes % 0.3 %; Immature Granulocytes Absolute 0.01 #; Lymphocytes # 0.6 10*3/uL (1.4-4.0); Lymphocytes % 16.2 % (21.3-54.2); Mean Corpuscular HGB Conc 33.1 GM/DL (32-36); Mean Corpuscular Volume 106.1 FL (87-102); Mean Platelet Volume 11.5 FL (9.6-12.0); Monocytes % 11.4 % (1.7-12.7); Neutrophils % 65.3 % (38.7-73.9); Platelet Count 95 T/CUMM (130-400); Red Blood Count 2.62 MC/CUMM (3.8-5.5); Red Cell Distribution Width 15.2 % (9.3-17.3); White Blood Count 3.7 T/CUMM (4-12)
[2020-06-16 04:55] LABS: INR 1.7; PT Patient Result 18.2 SECS (9.8-11.9)
[2020-06-16 05:04] LABS: Platelet Estimate Decreased
[2020-06-16 05:17] LABS: Calcium 8.9 MG/DL (8.5-10.1)
[2020-06-16] MEDS: LEVOTHYROXINE 125 MCG TABLET PO SCH (08:28)
[2020-06-16] MEDS: carvediloL 6.25 MG TABLET PO SCH ×2 (08:29→20:52)
[2020-06-16] MEDS: PANTOPRAZOLE 40 MG TABLET PO SCH (08:29)
[2020-06-16] MEDS: FUROSEMIDE 40 MG TABLET PO SCH (08:29)
[2020-06-16] MEDS: FERROUS SULFATE 325 MG TABLET PO SCH (08:29)
[2020-06-16] MEDS: CYANOCOBALAMIN 500 MCG TABLET PO SCH (08:30)
[2020-06-16] MEDS: MAGNESIUM CHLORIDE 64 MG TABLET PO SCH ×2 (08:30→20:52)
[2020-06-16] MEDS ORDERED: predniSONE 10 MG TABLET ONE (08:33)
[2020-06-16] MEDS: predniSONE 5 MG TABLET PO SCH (08:34)
[2020-06-16] MEDS: POTASSIUM CHLORIDE 10 MEQ TABLET PO SCH (08:34)
[2020-06-16] MEDS: cefTRIAXone 1,000 MG in SYRINGE 1 EACH IV SCH (14:29)
[2020-06-16] MEDS ORDERED: ENOXAPARIN 60 MG/0.6 ML SYRINGE SUBCUT ONE (17:46)
[2020-06-16] MEDS: WARFARIN 5 MG TABLET PO SCH (18:11)
[2020-06-16] MEDS: levETIRAcetam 500 MG TABLET PO SCH (20:52)
[2020-06-17] MEDS: ALBUTEROL/IPRATROPIUM 3 ML NEB RESP TX SCH ×4 (01:15→19:03)
[2020-06-17 05:15] LABS: INR 1.6; PT Patient Result 17.2 SECS (9.8-11.9)
[2020-06-17 05:31] LABS: Osmolality,Calculated 288.8 MOS/KG (273-304)
[2020-06-17 06:12] LABS: Basophils % 0.9 % (0.0-0.8); Eosinophils # 0.2 10*3/uL (0.0-0.87); Eosinophils % 4.9 % (0.00-10.9); Hematocrit 29.7 VOL% (35.7-47.0); Immature Granulocytes % 0.7 %; Immature Granulocytes Absolute 0.03 #; Lymphocytes # 0.6 10*3/uL (1.4-4.0); Lymphocytes % 13.9 % (21.3-54.2); Mean Corpuscular HGB Conc 33.7 GM/DL (32-36); Mean Corpuscular Volume 106.1 FL (87-102); Mean Platelet Volume 12.2 FL (9.6-12.0); Monocytes % 9.2 % (1.7-12.7); Neutrophils % 70.4 % (38.7-73.9); Platelet Count 112 T/CUMM (130-400); Red Cell Distribution Width 15.1 % (9.3-17.3); White Blood Count 4.3 T/CUMM (4-12)
[2020-06-17 06:40] LABS: Hypochromasia 1+; Microcytosis 1+; Ovalocytes Slight; Platelet Estimate Decreased
[2020-06-17] MEDS: MAGNESIUM CHLORIDE 64 MG TABLET PO SCH (09:18)
[2020-06-17] MEDS: POTASSIUM CHLORIDE 10 MEQ TABLET PO SCH (09:18)
[2020-06-17] MEDS: LEVOTHYROXINE 125 MCG TABLET PO SCH (09:23)
[2020-06-17] MEDS: predniSONE 5 MG TABLET PO SCH (09:23)
[2020-06-17] MEDS: carvediloL 6.25 MG TABLET PO SCH ×2 (09:24→21:45)
[2020-06-17] MEDS: PANTOPRAZOLE 40 MG TABLET PO SCH (09:24)
[2020-06-17] MEDS: FERROUS SULFATE 325 MG TABLET PO SCH (09:24)
[2020-06-17] MEDS: FUROSEMIDE 40 MG TABLET PO SCH ×2 (09:24→21:45)
[2020-06-17] MEDS: CYANOCOBALAMIN 500 MCG TABLET PO SCH (09:24)
[2020-06-17] MEDS: ENOXAPARIN 60 MG/0.6 ML SYRINGE SUBCUT SCH (13:17)
[2020-06-17] MEDS ORDERED: SKIN HEALING OINT (AQUAPHOR) 50 GM TUBE TOP PRN (15:03)
[2020-06-17] MEDS: cefTRIAXone 1,000 MG in SYRINGE 1 EACH IV SCH (15:09)
[2020-06-17] MEDS: WARFARIN 5 MG TABLET PO SCH (17:22)
[2020-06-17] MEDS ORDERED: WARFARIN 2.5 MG TABLET PO ONE (18:00)
[2020-06-17] MEDS: levETIRAcetam 500 MG TABLET PO SCH (21:45)
[2020-06-18] MEDS: ALBUTEROL/IPRATROPIUM 3 ML NEB RESP TX SCH ×4 (00:15→19:34)
[2020-06-18] MEDS ORDERED: MAGNESIUM SULF RIDER 1 GM in PREMIX 1 EACH IV ONE (00:30)
[2020-06-18] MEDS: ENOXAPARIN 60 MG/0.6 ML SYRINGE SUBCUT SCH (00:51)
[2020-06-18 06:51] LABS: Basophils # 0.1 10*3/uL (0.0-0.2); Basophils % 1.2 % (0.0-0.8); Eosinophils # 0.3 10*3/uL (0.0-0.87); Eosinophils % 6.2 % (0.00-10.9); Hematocrit 30.7 VOL% (35.7-47.0); Hemoglobin 10.2 GM/DL (12.0-16.0); Immature Granulocytes % 0.4 %; Immature Granulocytes Absolute 0.02 #; Lymphocytes % 20.2 % (21.3-54.2); Mean Corpuscular HGB Conc 33.2 GM/DL (32-36); Mean Corpuscular Volume 105.1 FL (87-102); Mean Platelet Volume 11.1 FL (9.6-12.0); Platelet Count 127 T/CUMM (130-400); Red Blood Count 2.92 MC/CUMM (3.8-5.5); Red Cell Distribution Width 14.9 % (9.3-17.3)
[2020-06-18 06:59] LABS: INR 1.8; PT Patient Result 18.8 SECS (9.8-11.9)
[2020-06-18 07:03] LABS: Calcium 9.3 MG/DL (8.5-10.1); Osmolality,Calculated 281.1 MOS/KG (273-304)
[2020-06-18 08:47] LABS: Platelet Estimate Adequate
[2020-06-18 08:49] LABS: Anisocytosis 2+; Macrocytosis 2+; Ovalocytes Few; Poikilocytosis Slight
[2020-06-18] MEDS: LEVOTHYROXINE 125 MCG TABLET PO SCH (08:52)
[2020-06-18] MEDS ORDERED: MAGNESIUM SULF RIDER 2 GM in PREMIX 1 EACH IV ONE (09:23)
[2020-06-18] MEDS ORDERED: WARFARIN 2.5 MG TABLET PO ONE ×2 (09:24→18:00)
[2020-06-18] MEDS: predniSONE 5 MG TABLET PO SCH (09:57)
[2020-06-18] MEDS: PANTOPRAZOLE 40 MG TABLET PO SCH (09:57)
[2020-06-18] MEDS: carvediloL 12.5 MG TABLET PO SCH ×2 (09:57→18:01)
[2020-06-18] MEDS: FERROUS SULFATE 325 MG TABLET PO SCH (09:57)
[2020-06-18] MEDS: FUROSEMIDE 40 MG TABLET PO SCH (09:58)
[2020-06-18] MEDS: CYANOCOBALAMIN 500 MCG TABLET PO SCH (09:59)
[2020-06-18] MEDS ORDERED: ENOXAPARIN 60 MG/0.6 ML SYRINGE SUBCUT SCH (10:00)
[2020-06-18] MEDS: WARFARIN 5 MG TABLET PO SCH (18:01)
[2020-06-18] MEDS: levETIRAcetam 500 MG TABLET PO SCH (20:57)
[2020-06-19] MEDS: ALBUTEROL/IPRATROPIUM 3 ML NEB RESP TX SCH ×4 (00:29→19:39)
[2020-06-19 05:48] LABS: Basophils # 0.1 10*3/uL (0.0-0.2); Basophils % 1.7 % (0.0-0.8); Eosinophils # 0.2 10*3/uL (0.0-0.87); Eosinophils % 4.6 % (0.00-10.9); Hematocrit 28.1 VOL% (35.7-47.0); Hemoglobin 9.5 GM/DL (12.0-16.0); Immature Granulocytes % 0.5 %; Immature Granulocytes Absolute 0.02 #; Lymphocytes # 0.8 10*3/uL (1.4-4.0); Lymphocytes % 18.8 % (21.3-54.2); Mean Corpuscular HGB Conc 33.8 GM/DL (32-36); Mean Corpuscular Volume 104.9 FL (87-102); Mean Platelet Volume 11.5 FL (9.6-12.0); Monocytes % 9.4 % (1.7-12.7); Platelet Count 118 T/CUMM (130-400); Red Blood Count 2.68 MC/CUMM (3.8-5.5); White Blood Count 4.2 T/CUMM (4-12)
[2020-06-19 05:58] LABS: INR 1.8; PT Patient Result 19.2 SECS (9.8-11.9)
[2020-06-19 06:13] LABS: Calcium 8.9 MG/DL (8.5-10.1); Osmolality,Calculated 279.2 MOS/KG (273-304)
[2020-06-19 06:58] LABS: Platelet Estimate Adequate
[2020-06-19 06:59] LABS: Anisocytosis 2+; Macrocytosis 2+
[2020-06-19] MEDS: LEVOTHYROXINE 125 MCG TABLET PO SCH (07:31)
[2020-06-19] MEDS ORDERED: WARFARIN 2.5 MG TABLET PO ONE (08:27)
[2020-06-19] MEDS: FERROUS SULFATE 325 MG TABLET PO SCH (09:10)
[2020-06-19] MEDS: FUROSEMIDE 40 MG TABLET PO SCH (09:11)
[2020-06-19] MEDS: carvediloL 12.5 MG TABLET PO SCH ×2 (09:11→17:32)
[2020-06-19] MEDS: PANTOPRAZOLE 40 MG TABLET PO SCH (09:11)
[2020-06-19] MEDS: predniSONE 5 MG TABLET PO SCH (09:11)
[2020-06-19] MEDS: ENOXAPARIN 60 MG/0.6 ML SYRINGE SUBCUT SCH (09:12)
[2020-06-19] MEDS ORDERED: WARFARIN 10 MG TABLET PO ONE (14:35)
[2020-06-19] MEDS: WARFARIN 5 MG TABLET PO SCH (18:24)
[2020-06-19] MEDS: levETIRAcetam 500 MG TABLET PO SCH (22:03)
[2020-06-20] MEDS: ALBUTEROL/IPRATROPIUM 3 ML NEB RESP TX SCH ×3 (00:43→14:10)
[2020-06-20 06:20] LABS: Basophils # 0.1 10*3/uL (0.0-0.2); Basophils % 1.2 % (0.0-0.8); Eosinophils # 0.2 10*3/uL (0.0-0.87); Eosinophils % 4.2 % (0.00-10.9); Hematocrit 29.1 VOL% (35.7-47.0); Hemoglobin 9.9 GM/DL (12.0-16.0); Immature Granulocytes % 0.7 %; Immature Granulocytes Absolute 0.03 #; Lymphocytes # 0.8 10*3/uL (1.4-4.0); Lymphocytes % 17.6 % (21.3-54.2); Mean Corpuscular Volume 105.8 FL (87-102); Mean Platelet Volume 11.5 FL (9.6-12.0); Monocytes % 8.8 % (1.7-12.7); Neutrophils % 67.5 % (38.7-73.9); Platelet Count 115 T/CUMM (130-400); Red Blood Count 2.75 MC/CUMM (3.8-5.5); Red Cell Distribution Width 15.2 % (9.3-17.3); White Blood Count 4.3 T/CUMM (4-12)
[2020-06-20 06:28] LABS: INR 2.2; PT Patient Result 22.6 SECS (9.8-11.9)
[2020-06-20 06:39] LABS: Hypochromasia 1+; Microcytosis 1+; Ovalocytes Slight; Platelet Estimate Decreased
[2020-06-20 06:40] LABS: Calcium 8.8 MG/DL (8.5-10.1); Osmolality,Calculated 281.1 MOS/KG (273-304)
[2020-06-20] MEDS: LEVOTHYROXINE 125 MCG TABLET PO SCH (09:09)
[2020-06-20] MEDS: FUROSEMIDE 40 MG TABLET PO SCH (09:09)
[2020-06-20] MEDS: predniSONE 5 MG TABLET PO SCH (09:09)
[2020-06-20] MEDS: carvediloL 12.5 MG TABLET PO SCH (09:09)
[2020-06-20] MEDS: ENOXAPARIN 60 MG/0.6 ML SYRINGE SUBCUT SCH (09:09)
[2020-06-20] MEDS: FERROUS SULFATE 325 MG TABLET PO SCH (09:09)
[2020-06-20] MEDS: PANTOPRAZOLE 40 MG TABLET PO SCH (09:09)
[2020-06-20 12:23] VITALS: BP 107/60
[2020-06-20 12:31] LABS: Folate > 24.0 NG/ML (5.4-24.0); Vitamin B12 > 2000 PG/ML (211-911)
== END 2020-06-20 15:37 | disposition home health service (06) | DRG 291 ==
LOC: EDUNIT# → N.ED 19:08 → N.EDINP 22:29 → SUATTDRO 22:29 → N.CC 06-13 00:14 → N.TELEN 06-17 16:28
PROVIDERS: ADMIT Internal Medicine; ATTEND Internal Medicine

== ENCOUNTER 2020-08-28 15:48 | Inpatient (IN) ==
[2020-08-28 16:27] LABS: Basophils % 1.2 % (0.0-0.8); Eosinophils # 0.1 10*3/uL (0.0-0.87); Eosinophils % 2.1 % (0.00-10.9); Hematocrit 33.4 VOL% (35.7-47.0); Hemoglobin 11.2 GM/DL (12.0-16.0); Lymphocytes # 0.5 10*3/uL (1.4-4.0); Lymphocytes % 15.7 % (21.3-54.2); Mean Corpuscular HGB Conc 33.5 GM/DL (32-36); Mean Corpuscular Volume 110.6 FL (87-102); Mean Platelet Volume 12.1 FL (9.6-12.0); Monocytes % 15.4 % (1.7-12.7); Neutrophils % 65.6 % (38.7-73.9); Platelet Count 96 T/CUMM (130-400); Red Blood Count 3.02 MC/CUMM (3.8-5.5); Red Cell Distribution Width 17.6 % (9.3-17.3); White Blood Count 3.3 T/CUMM (4-12)
[2020-08-28 16:43] LABS: PT Patient Result 49.7 SECS (9.8-11.9)
[2020-08-28 16:51] LABS: Albumin 3.6 G/DL (3.4-5.0); Bilirubin,Total 0.8 MG/DL (0.2-1.0); Calcium 8.7 MG/DL (8.5-10.1); Osmolality,Calculated 284.7 MOS/KG (273-304)
[2020-08-28] MEDS ORDERED: FUROSEMIDE 40 MG/4 ML VIAL IV STA (17:17)
[2020-08-28 17:24] LABS: Bilirubin,Urine Negative (Negative); Blood, Urine Large mg/dL (Negative); Glucose,Urine (UA) Negative (Negative); Ketones,Urine Negative (Negative); Nitrite,Urine Negative (Negative); Protein,Urine 100 MG/DL; RBC,Urine 759 /HPF (0-4); Urine Appearance CLOUDY (Clear); Urine Color Red (Yellow); Urine Specific Gravity 1.008 (1.001-1.035); Urine Urobilinogen < 2.0 EU/DL (0.2-1.0); WBC,Urine 1805 /HPF (0-6)
[2020-08-28] MEDS ORDERED: GLUCAGON 1 MG VIAL IM PRN (17:24)
[2020-08-28] MEDS ORDERED: ACETAMINOPHEN 325 MG TABLET PO PRN (17:24)
[2020-08-28] MEDS ORDERED: DEXTROSE 50% 25 GM/50 ML VIAL IV PRN (17:24)
[2020-08-28] MEDS ORDERED: ONDANSETRON 4 MG/2 ML VIAL IV PRN (17:24)
[2020-08-28] MEDS ORDERED: LEVOFLOXACIN INJ 500 MG in PREMIX 1 EACH IV ONE (18:00)
[2020-08-29 05:21] LABS: Basophils % 0.9 % (0.0-0.8); Eosinophils # 0.1 10*3/uL (0.0-0.87); Eosinophils % 2.3 % (0.00-10.9); Hematocrit 28.9 VOL% (35.7-47.0); Hemoglobin 10.5 GM/DL (12.0-16.0); Immature Granulocytes % 0.3 %; Immature Granulocytes Absolute 0.01 #; Lymphocytes # 0.5 10*3/uL (1.4-4.0); Lymphocytes % 13.2 % (21.3-54.2); Mean Corpuscular HGB Conc 36.3 GM/DL (32-36); Mean Corpuscular Volume 108.2 FL (87-102); Mean Platelet Volume 13.5 FL (9.6-12.0); Monocytes % 12.6 % (1.7-12.7); Neutrophils % 70.7 % (38.7-73.9); Platelet Count 105 T/CUMM (130-400); Red Blood Count 2.67 MC/CUMM (3.8-5.5); Red Cell Distribution Width 17.4 % (9.3-17.3); White Blood Count 3.5 T/CUMM (4-12)
[2020-08-29 05:38] LABS: Calcium 8.8 MG/DL (8.5-10.1); Osmolality,Calculated 286.5 MOS/KG (273-304)
[2020-08-29 05:41] LABS: Albumin 3.3 G/DL (3.4-5.0); Bilirubin,Direct 0.23 MG/DL (0.0-0.20); Bilirubin,Indirect 0.8 MG/DL (0.0-1.0); Total Protein 7.1 G/DL (6.4-8.3)
[2020-08-29 05:43] LABS: INR 4.9; PT Patient Result 48.6 SECS (9.8-11.9)
[2020-08-29 05:49] LABS: Hypochromasia 1+; Microcytosis 1+; Platelet Estimate Decreased
[2020-08-29 06:03] LABS: Risk Ratio 2.25; Thyroid Stimulating Hormone 12.5 uIU/ml (0.358-3.74); VLDL CHOLESTEROL 10.6 MG/DL
[2020-08-29] MEDS: FUROSEMIDE 40 MG/4 ML VIAL IV SCH (09:35)
[2020-08-29] MEDS: PANTOPRAZOLE 40 MG TABLET PO SCH (09:35)
[2020-08-29] MEDS ORDERED: LEVOFLOXACIN INJ 250 MG in PREMIX 1 EACH IV SCH (18:00)
[2020-08-29] MEDS ORDERED: LEVOFLOXACIN IV ONE (19:00)
[2020-08-29] MEDS: carvediloL 12.5 MG TABLET PO SCH (21:47)
[2020-08-30 05:30] LABS: Basophils % 0.7 % (0.0-0.8); Eosinophils # 0.1 10*3/uL (0.0-0.87); Eosinophils % 1.4 % (0.00-10.9); Hematocrit 29.6 VOL% (35.7-47.0); Hemoglobin 10.3 GM/DL (12.0-16.0); Immature Granulocytes % 0.2 %; Immature Granulocytes Absolute 0.01 #; Lymphocytes # 0.6 10*3/uL (1.4-4.0); Lymphocytes % 13.1 % (21.3-54.2); Mean Corpuscular HGB Conc 34.8 GM/DL (32-36); Mean Corpuscular Volume 108.8 FL (87-102); Mean Platelet Volume 12.8 FL (9.6-12.0); Monocytes % 15.9 % (1.7-12.7); Neutrophils % 68.7 % (38.7-73.9); Platelet Count 80 T/CUMM (130-400); Red Blood Count 2.72 MC/CUMM (3.8-5.5); Red Cell Distribution Width 17.2 % (9.3-17.3); White Blood Count 4.3 T/CUMM (4-12)
[2020-08-30 05:47] LABS: Calcium 8.6 MG/DL (8.5-10.1); Osmolality,Calculated 282.8 MOS/KG (273-304)
[2020-08-30 05:52] LABS: Albumin 3.1 G/DL (3.4-5.0); Bilirubin,Direct 0.39 MG/DL (0.0-0.20); Bilirubin,Indirect 1.6 MG/DL (0.0-1.0)
[2020-08-30 06:19] LABS: Hypochromasia 1+; Lymphocytes 14 % (20-55); Microcytosis 1+; Ovalocytes Slight; Platelet Estimate Decreased; Segmented Neutrophils 74 % (50-85); Total Cells Counted 100
[2020-08-30] MEDS: PANTOPRAZOLE 40 MG TABLET PO SCH (08:58)
[2020-08-30] MEDS: carvediloL 12.5 MG TABLET PO SCH ×2 (08:58→20:46)
[2020-08-30] MEDS: FUROSEMIDE 40 MG/4 ML VIAL IV SCH (08:58)
[2020-08-30] MEDS: LEVOTHYROXINE 125 MCG TABLET PO SCH (08:58)
[2020-08-30] MEDS: WARFARIN 5 MG TABLET PO SCH (13:00)
[2020-08-30] MEDS ORDERED: FUROSEMIDE 20 MG/2 ML VIAL IV ONE (14:08)
[2020-08-30] MEDS: NITROFURANTOIN MACRO/MONO 100 MG CAPSULE PO SCH (16:53)
[2020-08-30] MEDS: methylPREDNISolone SOD SUC 40 MG/1 ML VIAL IV SCH (19:01)
[2020-08-30] MEDS: MONTELUKAST 10 MG TABLET PO SCH (20:46)
[2020-08-30] MEDS: FLUTICASONE/SALMETEROL 100-50 DISKUS 14 DOSE INH SCH (20:52)
[2020-08-31] MEDS: LEVALBUTEROL 1.25 MG/3 ML NEB RESP TX SCH ×3 (00:01→16:19)
[2020-08-31] MEDS: NITROFURANTOIN MACRO/MONO 100 MG CAPSULE PO SCH ×2 (03:26→14:13)
[2020-08-31] MEDS: methylPREDNISolone SOD SUC 40 MG/1 ML VIAL IV SCH ×2 (05:18→18:13)
[2020-08-31 05:49] LABS: Basophils % 0.3 % (0.0-0.8); Hematocrit 33.6 VOL% (35.7-47.0); Hemoglobin 11.4 GM/DL (12.0-16.0); Immature Granulocytes % 1.1 %; Immature Granulocytes Absolute 0.04 #; Lymphocytes # 0.4 10*3/uL (1.4-4.0); Lymphocytes % 9.9 % (21.3-54.2); Mean Corpuscular HGB Conc 33.9 GM/DL (32-36); Mean Corpuscular Volume 110.5 FL (87-102); Monocytes % 3.5 % (1.7-12.7); Neutrophils % 85.2 % (38.7-73.9); Red Blood Count 3.04 MC/CUMM (3.8-5.5); Red Cell Distribution Width 16.9 % (9.3-17.3); White Blood Count 3.7 T/CUMM (4-12)
[2020-08-31 05:52] LABS: Platelet Count 72 T/CUMM (130-400)
[2020-08-31 06:13] LABS: Calcium 8.7 MG/DL (8.5-10.1); Osmolality,Calculated 284.4 MOS/KG (273-304)
[2020-08-31 06:17] LABS: Hypochromasia 1+; Microcytosis 1+; Platelet Estimate Decreased
[2020-08-31 06:18] LABS: Albumin 2.9 G/DL (3.4-5.0); Bilirubin,Direct 0.68 MG/DL (0.0-0.20); Bilirubin,Total 1.7 MG/DL (0.2-1.0); Total Protein 7.2 G/DL (6.4-8.3)
[2020-08-31 06:40] LABS: Calcium 8.6 MG/DL (8.5-10.1); Osmolality,Calculated 283.4 MOS/KG (273-304)
[2020-08-31 07:57] LABS: Hepatitis B Core IgM Quant 0.17 Index; Hepatitis B Surface Ag Quant < 0.10 Index; Hepatitis B Surface Ag Result Negative (Negative); Hepatitis C Virus Ab Quant 0.12 Index; Hepatitis C Virus Ab Result Negative (Negative)
[2020-08-31] MEDS: carvediloL 12.5 MG TABLET PO SCH ×2 (09:13→22:04)
[2020-08-31] MEDS: LEVOTHYROXINE 125 MCG TABLET PO SCH (09:13)
[2020-08-31] MEDS: PANTOPRAZOLE 40 MG TABLET PO SCH (09:13)
[2020-08-31] MEDS: FLUTICASONE/SALMETEROL 100-50 DISKUS 14 DOSE INH SCH ×3 (09:14→22:10)
[2020-08-31] MEDS: FUROSEMIDE 40 MG/4 ML VIAL IV SCH (09:28)
[2020-08-31] MEDS: WARFARIN 5 MG TABLET PO SCH (09:36)
[2020-08-31] MEDS ORDERED: HEPARIN DRIP 25,000 UNITS/500 ML PREMIX IV SCH (10:30)
[2020-08-31] MEDS ORDERED: WARFARIN 3 MG TABLET PO SCH (18:00)
[2020-08-31 19:18] LABS: INR 2.7; PT Patient Result 27.2 SECS (9.8-11.9)
[2020-08-31] MEDS ORDERED: WARFARIN 5 MG TABLET PO SCH (19:57)
[2020-08-31] MEDS: MONTELUKAST 10 MG TABLET PO SCH (22:04)
[2020-09-01] MEDS: LEVALBUTEROL 1.25 MG/3 ML NEB RESP TX SCH ×3 (00:04→14:36)
[2020-09-01] MEDS: NITROFURANTOIN MACRO/MONO 100 MG CAPSULE PO SCH ×2 (01:50→14:10)
[2020-09-01] MEDS: methylPREDNISolone SOD SUC 40 MG/1 ML VIAL IV SCH (05:35)
[2020-09-01 06:05] LABS: Hematocrit 31.8 VOL% (35.7-47.0); Hemoglobin 10.7 GM/DL (12.0-16.0); Immature Granulocytes % 0.6 %; Immature Granulocytes Absolute 0.03 #; Lymphocytes # 0.3 10*3/uL (1.4-4.0); Lymphocytes % 6.4 % (21.3-54.2); Mean Corpuscular HGB Conc 33.6 GM/DL (32-36); Mean Corpuscular Volume 110.8 FL (87-102); Mean Platelet Volume 12.7 FL (9.6-12.0); Monocytes % 6.8 % (1.7-12.7); Neutrophils % 86.2 % (38.7-73.9); Platelet Count 79 T/CUMM (130-400); Red Blood Count 2.87 MC/CUMM (3.8-5.5); Red Cell Distribution Width 16.1 % (9.3-17.3); White Blood Count 4.8 T/CUMM (4-12)
[2020-09-01 06:06] LABS: INR 3.2; PT Patient Result 32.5 SECS (9.8-11.9)
[2020-09-01 06:15] LABS: Calcium 8.8 MG/DL (8.5-10.1); Osmolality,Calculated 281.7 MOS/KG (273-304)
[2020-09-01 07:31] LABS: Anisocytosis 1+; Platelet Estimate Decreased; Tear Drop Cells Few
[2020-09-01 07:32] LABS: Macrocytosis 1+; Ovalocytes Few; Poikilocytosis Slight
[2020-09-01] MEDS: carvediloL 12.5 MG TABLET PO SCH (08:42)
[2020-09-01] MEDS: LEVOTHYROXINE 125 MCG TABLET PO SCH (08:42)
[2020-09-01] MEDS: PANTOPRAZOLE 40 MG TABLET PO SCH (08:42)
[2020-09-01] MEDS: FLUTICASONE/SALMETEROL 100-50 DISKUS 14 DOSE INH SCH ×2 (08:43→21:17)
[2020-09-01] MEDS ORDERED: WARFARIN 3 MG TABLET PO SCH (16:34)
[2020-09-01] MEDS: NEBIVOLOL 10 MG TABLET PO SCH (21:17)
[2020-09-01] MEDS: MONTELUKAST 10 MG TABLET PO SCH (21:17)
[2020-09-02] MEDS: LEVALBUTEROL 1.25 MG/3 ML NEB RESP TX SCH ×2 (00:46→07:12)
[2020-09-02 05:23] LABS: Hematocrit 32.4 VOL% (35.7-47.0); Hemoglobin 11.2 GM/DL (12.0-16.0); Immature Granulocytes % 0.6 %; Immature Granulocytes Absolute 0.03 #; Lymphocytes # 0.3 10*3/uL (1.4-4.0); Lymphocytes % 5.2 % (21.3-54.2); Mean Corpuscular HGB Conc 34.6 GM/DL (32-36); Mean Corpuscular Volume 110.6 FL (87-102); Mean Platelet Volume 12.7 FL (9.6-12.0); Monocytes % 6.9 % (1.7-12.7); Neutrophils % 87.3 % (38.7-73.9); Red Blood Count 2.93 MC/CUMM (3.8-5.5); White Blood Count 5.2 T/CUMM (4-12)
[2020-09-02 05:28] LABS: Platelet Count 85 T/CUMM (130-400)
[2020-09-02 05:55] LABS: Calcium 8.9 MG/DL (8.5-10.1); Osmolality,Calculated 287.7 MOS/KG (273-304)
[2020-09-02] MEDS: NITROFURANTOIN MACRO/MONO 100 MG CAPSULE PO SCH ×2 (06:09→18:04)
[2020-09-02 06:19] LABS: Hypochromasia 1+; Macrocytosis 1+
[2020-09-02 06:20] LABS: Ovalocytes Slight; Target Cells Slight
[2020-09-02 06:21] LABS: Platelet Estimate Decreased
[2020-09-02] MEDS ORDERED: SODIUM CHLORIDE 0.45% 1,000 ML IV SCH (07:30)
[2020-09-02 08:07] LABS: INR 3.7; PT Patient Result 37.2 SECS (9.8-11.9)
[2020-09-02] MEDS: LEVOTHYROXINE 125 MCG TABLET PO SCH (09:04)
[2020-09-02] MEDS: PANTOPRAZOLE 40 MG TABLET PO SCH (09:04)
[2020-09-02] MEDS: NEBIVOLOL 10 MG TABLET PO SCH (09:04)
[2020-09-02] MEDS: predniSONE 20 MG TABLET PO SCH (09:04)
[2020-09-02] MEDS: FLUTICASONE/SALMETEROL 100-50 DISKUS 14 DOSE INH SCH ×2 (09:10→21:00)
[2020-09-02] MEDS ORDERED: LEVALBUTEROL 1.25 MG/3 ML NEB RESP TX ONE (14:22)
[2020-09-02] MEDS: WARFARIN 1 MG TABLET PO SCH (18:04)
[2020-09-02] MEDS: MONTELUKAST 10 MG TABLET PO SCH (21:00)
[2020-09-03 05:52] LABS: Hematocrit 33.8 VOL% (35.7-47.0); Hemoglobin 11.3 GM/DL (12.0-16.0); Immature Granulocytes % 0.7 %; Immature Granulocytes Absolute 0.04 #; Lymphocytes # 0.4 10*3/uL (1.4-4.0); Lymphocytes % 6.8 % (21.3-54.2); Mean Corpuscular HGB Conc 33.4 GM/DL (32-36); Mean Corpuscular Volume 109.4 FL (87-102); Mean Platelet Volume 12.3 FL (9.6-12.0); Monocytes % 9.3 % (1.7-12.7); Neutrophils % 83.2 % (38.7-73.9); Platelet Count 121 T/CUMM (130-400); Red Blood Count 3.09 MC/CUMM (3.8-5.5); White Blood Count 5.9 T/CUMM (4-12)
[2020-09-03 06:05] LABS: INR 2.8; PT Patient Result 28.3 SECS (9.8-11.9)
[2020-09-03] MEDS: NITROFURANTOIN MACRO/MONO 100 MG CAPSULE PO SCH ×2 (06:08→18:01)
[2020-09-03 06:21] LABS: Osmolality,Calculated 283.8 MOS/KG (273-304)
[2020-09-03] MEDS: predniSONE 20 MG TABLET PO SCH (08:34)
[2020-09-03] MEDS: PANTOPRAZOLE 40 MG TABLET PO SCH (08:34)
[2020-09-03] MEDS: NEBIVOLOL 10 MG TABLET PO SCH (08:34)
[2020-09-03] MEDS: FLUTICASONE/SALMETEROL 100-50 DISKUS 14 DOSE INH SCH ×2 (08:34→22:47)
[2020-09-03] MEDS: LEVOTHYROXINE 125 MCG TABLET PO SCH (08:39)
[2020-09-03] MEDS: WARFARIN 1 MG TABLET PO SCH (17:15)
[2020-09-03] MEDS ORDERED: HEPARIN 5,000 UNIT/1 ML VIAL SUBCUT SCH (18:00)
[2020-09-03] MEDS: MONTELUKAST 10 MG TABLET PO SCH (22:47)
[2020-09-04 04:27] LABS: Basophils % 0.2 % (0.0-0.8); Hematocrit 35.4 VOL% (35.7-47.0); Hemoglobin 12.2 GM/DL (12.0-16.0); Immature Granulocytes % 1.2 %; Immature Granulocytes Absolute 0.06 #; Lymphocytes # 0.6 10*3/uL (1.4-4.0); Lymphocytes % 11.9 % (21.3-54.2); Mean Corpuscular HGB Conc 34.5 GM/DL (32-36); Mean Corpuscular Volume 109.9 FL (87-102); Mean Platelet Volume 12.2 FL (9.6-12.0); Monocytes % 13.1 % (1.7-12.7); Neutrophils % 73.6 % (38.7-73.9); Platelet Count 130 T/CUMM (130-400); Red Blood Count 3.22 MC/CUMM (3.8-5.5); Red Cell Distribution Width 15.9 % (9.3-17.3); White Blood Count 5.1 T/CUMM (4-12)
[2020-09-04 04:33] LABS: Calcium 9.1 MG/DL (8.5-10.1); Osmolality,Calculated 285.5 MOS/KG (273-304)
[2020-09-04 04:44] LABS: INR 2.6; PT Patient Result 26.2 SECS (9.8-11.9)
[2020-09-04] MEDS: NITROFURANTOIN MACRO/MONO 100 MG CAPSULE PO SCH (06:22)
[2020-09-04] MEDS: FLUTICASONE/SALMETEROL 100-50 DISKUS 14 DOSE INH SCH ×2 (09:42→20:17)
[2020-09-04] MEDS: PANTOPRAZOLE 40 MG TABLET PO SCH (09:42)
[2020-09-04] MEDS: predniSONE 20 MG TABLET PO SCH (09:42)
[2020-09-04] MEDS: LEVOTHYROXINE 125 MCG TABLET PO SCH (09:42)
[2020-09-04] MEDS: NEBIVOLOL 10 MG TABLET PO SCH (09:42)
[2020-09-04] MEDS: LEVALBUTEROL 1.25 MG/3 ML NEB RESP TX SCH (14:50)
[2020-09-04] MEDS: WARFARIN 1 MG TABLET PO SCH (18:28)
[2020-09-04] MEDS: MONTELUKAST 10 MG TABLET PO SCH (20:05)
[2020-09-05] MEDS: LEVALBUTEROL 1.25 MG/3 ML NEB RESP TX SCH ×4 (01:54→23:35)
[2020-09-05 05:55] LABS: Basophils % 0.2 % (0.0-0.8); Eosinophils # 0.1 10*3/uL (0.0-0.87); Eosinophils % 0.9 % (0.00-10.9); Hematocrit 35.2 VOL% (35.7-47.0); Hemoglobin 12.1 GM/DL (12.0-16.0); Immature Granulocytes % 1.1 %; Immature Granulocytes Absolute 0.06 #; Lymphocytes # 0.8 10*3/uL (1.4-4.0); Lymphocytes % 14.4 % (21.3-54.2); Mean Corpuscular HGB Conc 34.4 GM/DL (32-36); Mean Corpuscular Volume 110.3 FL (87-102); Mean Platelet Volume 11.8 FL (9.6-12.0); Monocytes % 15.1 % (1.7-12.7); Neutrophils % 68.3 % (38.7-73.9); Platelet Count 153 T/CUMM (130-400); Red Blood Count 3.19 MC/CUMM (3.8-5.5); Red Cell Distribution Width 16.1 % (9.3-17.3); White Blood Count 5.7 T/CUMM (4-12)
[2020-09-05 06:05] LABS: Calcium 9.3 MG/DL (8.5-10.1); Osmolality,Calculated 295.7 MOS/KG (273-304)
[2020-09-05 06:09] LABS: INR 2.6; PT Patient Result 26.7 SECS (9.8-11.9)
[2020-09-05 06:24] LABS: Hypochromasia 1+; Ovalocytes Slight; Platelet Estimate Adequate
[2020-09-05] MEDS: LEVOTHYROXINE 125 MCG TABLET PO SCH (08:57)
[2020-09-05] MEDS: NEBIVOLOL 10 MG TABLET PO SCH (08:57)
[2020-09-05] MEDS: predniSONE 20 MG TABLET PO SCH (08:57)
[2020-09-05] MEDS: PANTOPRAZOLE 40 MG TABLET PO SCH (08:57)
[2020-09-05] MEDS: FLUTICASONE/SALMETEROL 100-50 DISKUS 14 DOSE INH SCH ×2 (08:58→20:58)
[2020-09-05 17:11] LABS: Bacteria,Urine Many /HPF (Few); Bilirubin,Urine Negative (Negative); Blood, Urine Moderate mg/dL (Negative); Glucose,Urine (UA) Negative (Negative); Ketones,Urine Negative (Negative); Nitrite,Urine Positive (Negative); Protein,Urine Negative; RBC,Urine 3 /HPF (0-4); Urine Appearance CLOUDY (Clear); Urine Color Yellow (Yellow); Urine Specific Gravity 1.013 (1.001-1.035); Urine Urobilinogen < 2.0 EU/DL (0.2-1.0); WBC,Urine 181 /HPF (0-6)
[2020-09-05] MEDS: WARFARIN 3 MG TABLET PO SCH (17:33)
[2020-09-05] MEDS: MONTELUKAST 10 MG TABLET PO SCH (20:58)
[2020-09-06 06:22] LABS: Eosinophils # 0.1 10*3/uL (0.0-0.87); Eosinophils % 2.1 % (0.00-10.9); Hematocrit 34.9 VOL% (35.7-47.0); Hemoglobin 11.7 GM/DL (12.0-16.0); Immature Granulocytes % 0.5 %; Immature Granulocytes Absolute 0.03 #; Lymphocytes # 0.8 10*3/uL (1.4-4.0); Lymphocytes % 13.3 % (21.3-54.2); Mean Corpuscular HGB Conc 33.5 GM/DL (32-36); Mean Corpuscular Volume 109.7 FL (87-102); Mean Platelet Volume 10.4 FL (9.6-12.0); Monocytes % 12.6 % (1.7-12.7); Neutrophils % 71.5 % (38.7-73.9); Platelet Count 143 T/CUMM (130-400); Red Blood Count 3.18 MC/CUMM (3.8-5.5); Red Cell Distribution Width 16.5 % (9.3-17.3); White Blood Count 5.8 T/CUMM (4-12)
[2020-09-06 06:37] LABS: INR 2.3; PT Patient Result 23.5 SECS (9.8-11.9)
[2020-09-06 06:50] LABS: Calcium 9.1 MG/DL (8.5-10.1); Osmolality,Calculated 299.1 MOS/KG (273-304)
[2020-09-06 06:54] LABS: Albumin 2.9 G/DL (3.4-5.0); Bilirubin,Direct 0.52 MG/DL (0.0-0.20); Bilirubin,Indirect 1.1 MG/DL (0.0-1.0); Bilirubin,Total 1.6 MG/DL (0.2-1.0); Total Protein 6.8 G/DL (6.4-8.3)
[2020-09-06 06:55] LABS: Albumin 2.9 G/DL (3.4-5.0); Bilirubin,Total 1.5 MG/DL (0.2-1.0); Calcium 9.2 MG/DL (8.5-10.1); Osmolality,Calculated 297.3 MOS/KG (273-304); Total Protein 6.7 G/DL (6.4-8.3)
[2020-09-06] MEDS: LEVALBUTEROL 1.25 MG/3 ML NEB RESP TX SCH ×2 (07:15→15:00)
[2020-09-06] MEDS: NEBIVOLOL 10 MG TABLET PO SCH (08:22)
[2020-09-06] MEDS: predniSONE 20 MG TABLET PO SCH (08:22)
[2020-09-06] MEDS: PANTOPRAZOLE 40 MG TABLET PO SCH (08:22)
[2020-09-06] MEDS: LEVOTHYROXINE 125 MCG TABLET PO SCH (08:22)
[2020-09-06] MEDS: FLUTICASONE/SALMETEROL 100-50 DISKUS 14 DOSE INH SCH ×2 (08:36→21:23)
[2020-09-06 11:12] LABS: Bacteria,Urine Many /HPF (Few); Bilirubin,Urine Negative (Negative); Blood, Urine Small mg/dL (Negative); Glucose,Urine (UA) Negative (Negative); Ketones,Urine Negative (Negative); Mucus,Urine Few /LPF (Occasional); Nitrite,Urine Negative (Negative); Protein,Urine Negative; RBC,Urine 10 /HPF (0-4); Urine Appearance Slightly Hazy (Clear); Urine Color Yellow (Yellow); Urine Specific Gravity 1.014 (1.001-1.035); Urine Urobilinogen < 2.0 EU/DL (0.2-1.0); WBC,Urine 32 /HPF (0-6)
[2020-09-06] MEDS ORDERED: SULFAMETHOX/TRIMETHOPRIM 400-80 MG TABLET PO SCH (14:30)
[2020-09-06] MEDS: SULFAMETHOX/TRIMETHOPRIM 800-160 MG TABLET PO SCH ×2 (15:07→21:23)
[2020-09-06] MEDS: WARFARIN 3 MG TABLET PO SCH (18:08)
[2020-09-06] MEDS: MONTELUKAST 10 MG TABLET PO SCH (21:23)
[2020-09-07] MEDS: LEVALBUTEROL 1.25 MG/3 ML NEB RESP TX SCH ×3 (00:06→14:35)
[2020-09-07 04:46] LABS: INR 2.5; PT Patient Result 25.8 SECS (9.8-11.9)
[2020-09-07 04:53] LABS: Calcium 8.9 MG/DL (8.5-10.1); Osmolality,Calculated 291.4 MOS/KG (273-304)
[2020-09-07 05:57] LABS: Eosinophils # 0.1 10*3/uL (0.0-0.87); Eosinophils % 1.3 % (0.00-10.9); Hematocrit 34.3 VOL% (35.7-47.0); Hemoglobin 11.3 GM/DL (12.0-16.0); Immature Granulocytes % 0.6 %; Immature Granulocytes Absolute 0.04 #; Lymphocytes # 0.5 10*3/uL (1.4-4.0); Lymphocytes % 7.2 % (21.3-54.2); Mean Corpuscular HGB Conc 32.9 GM/DL (32-36); Mean Corpuscular Volume 109.6 FL (87-102); Neutrophils % 78.9 % (38.7-73.9); Platelet Count 145 T/CUMM (130-400); Red Blood Count 3.13 MC/CUMM (3.8-5.5); Red Cell Distribution Width 16.7 % (9.3-17.3); White Blood Count 6.8 T/CUMM (4-12)
[2020-09-07] MEDS: SULFAMETHOX/TRIMETHOPRIM 800-160 MG TABLET PO SCH (08:45)
[2020-09-07] MEDS: predniSONE 20 MG TABLET PO SCH (08:45)
[2020-09-07] MEDS: PANTOPRAZOLE 40 MG TABLET PO SCH (08:45)
[2020-09-07] MEDS: NEBIVOLOL 10 MG TABLET PO SCH (08:45)
[2020-09-07] MEDS: LEVOTHYROXINE 125 MCG TABLET PO SCH (08:45)
[2020-09-07] MEDS: FLUTICASONE/SALMETEROL 100-50 DISKUS 14 DOSE INH SCH (08:46)
[2020-09-07 11:52] VITALS: BP 126/72
== END 2020-09-07 16:36 | disposition home health service (06) | DRG 291 ==
LOC: N.ED 15:48 → INTOOBSV 17:23 → N.EDINP 17:23 → N.TELES 08-29 19:35
PROVIDERS: ADMIT Internal Medicine; ATTEND Internal Medicine

== ENCOUNTER 2020-09-14 13:43 | Observation (INO) ==
[2020-09-14 15:09] LABS: Eosinophils # 0.1 10*3/uL (0.0-0.87); Eosinophils % 1.1 % (0.00-10.9); Hematocrit 38.8 VOL% (35.7-47.0); Hemoglobin 12.8 GM/DL (12.0-16.0); Immature Granulocytes % 0.8 %; Immature Granulocytes Absolute 0.05 #; Lymphocytes # 0.4 10*3/uL (1.4-4.0); Lymphocytes % 5.4 % (21.3-54.2); Mean Corpuscular Volume 109.3 FL (87-102); Mean Platelet Volume 10.7 FL (9.6-12.0); Monocytes % 5.7 % (1.7-12.7); Platelet Count 166 T/CUMM (130-400); Red Blood Count 3.55 MC/CUMM (3.8-5.5); Red Cell Distribution Width 16.9 % (9.3-17.3); White Blood Count 6.6 T/CUMM (4-12)
[2020-09-14 15:20] LABS: INR 3.4; Partial Thromboplastin Time 39.8 SECS (23.9-33.8)
[2020-09-14 15:32] LABS: Albumin 3.3 G/DL (3.4-5.0); Bilirubin,Total 1.2 MG/DL (0.2-1.0); Calcium 8.6 MG/DL (8.5-10.1); Osmolality,Calculated 284.7 MOS/KG (273-304); Total Protein 6.9 G/DL (6.4-8.3)
[2020-09-14 15:34] LABS: Lymphocytes 6 % (20-55); Segmented Neutrophils 91 % (50-85); Total Cells Counted 100
[2020-09-14 15:35] LABS: Hypochromasia Slight; Platelet Estimate Adequate; Reactive Lymphocytes Few; Schistocytes Slight
[2020-09-14 15:59] LABS: Bilirubin,Urine Negative (Negative); Blood, Urine Negative (Negative); Glucose,Urine (UA) Negative (Negative); Hyaline Casts,Urine 15 /LPF (0-3); Ketones,Urine Negative (Negative); Nitrite,Urine Negative (Negative); Protein,Urine Negative; RBC,Urine 1 /HPF (0-4); Urine Appearance CLEAR (Clear); Urine Color Yellow (Yellow); Urine Specific Gravity 1.009 (1.001-1.035); Urine Urobilinogen < 2.0 EU/DL (0.2-1.0); WBC,Urine <1 /HPF (0-6)
[2020-09-14] MEDS ORDERED: MORPHINE 4 MG/1 ML VIAL IV PRN (16:42)
[2020-09-14] MEDS ORDERED: LORazepam 2 MG/1 ML VIAL IV PRN (16:42)
[2020-09-14] MEDS ORDERED: LORazepam 2 MG/1 ML VIAL IV STA (16:44)
[2020-09-14] MEDS ORDERED: MORPHINE 4 MG/1 ML VIAL IV STA (16:44)
[2020-09-14] MEDS ORDERED: fentaNYL 25 MCG/HR PATCH TRANSDERM SCH (21:00)
[2020-09-15] MEDS ORDERED: FUROSEMIDE 40 MG/4 ML VIAL IV ONE (09:00)
[2020-09-15 12:08] VITALS: BP 101/63
[2020-09-17] MEDS ORDERED: fentaNYL 25 MCG/HR PATCH TRANSDERM SCH (09:00)
== END 2020-09-15 15:18 | disposition hospice, home (50) ==
LOC: EDUNIT# → EDBD → N.ED 13:43 → N.EDINP 13:43 → SUATTDRO 16:42 → N.EDINP 19:09 → N.5E 19:21
PROVIDERS: ADMIT Internal Medicine Geriatric Medicine; ATTEND Internal Medicine